=== PATIENT | female | born 1990 | race Caucasian/White ===

== ENCOUNTER 2016-06-29 22:00 | Emergency (ER) | payer OTHER ==
[2016-06-29 22:05] VITALS: RESP 18; TEMP 100.6
--- NOTE | 2016-06-29 22:12 | ED ---
Psych HPI - General Chief Complaint: Psychiatric Symptoms Stated Complaint: MENTAL HEALTH Time Seen by Provider: 06/29/16 22:06 Source: patient, RN notes reviewed Mode of arrival: ambulatory Limitations: no limitations - History of Present Illness Initial Comments: 25-year-old female presents emergency Department with police escort for psychiatric evaluation. Patient was picked up on court order burr picker. Patient made some threats other day no she states she cannot remember what they were. Patient's mother filed a petition with the Court and she was picked up by police. Patient denies any suicidal or homicidal thoughts. Patient has no complaints denies cough cold like symptoms. Denies ear pain. She states she had sore throat past but states that mother at this time. Denies any abdominal pain, nausea, vomiting diarrhea constipation. Patient offers no other complaints. Patient's does admit to occasional of all use and drug use which includes marijuana heroin - Related Data Home Medications Medication Instructions Recorded Confirmed No Known Home Medications [No 09/09/15 06/29/16 Known Home Medications] Allergies Allergy/AdvReac Type Severity Reaction Status Date / Time No Known Allergies Allergy Verified 06/29/16 22:05 Review of Systems ROS Statement: Those systems with pertinent positive or pertinent negative responses have been documented in the HPI. ROS Other: All systems not noted in ROS Statement are negative. Past Medical History Past Medical History: No Reported History Additional Past Medical History / Comment(s): kidney failure 2011 with dialysis , on life support at [facility] 07/13 after drug overdose, concusion in 2002 from fall while skateboarding History of Any Multi-Drug Resistant Organisms: None Reported Additional Past Surgical History / Comment(s): plastic surgery on lip Past Anesthesia/Blood Transfusion Reactions: No Reported Reaction Past Psychological History: Anxiety, Bipolar, Depression Smoking Status: Current every day smoker Past Alcohol Use History: Occasional Additional Past Alcohol Use History / Comment(s): monthly, drinks 5 beers in one sitting Past Drug Use History: Heroin, Marijuana, Prescription Drug Abuse Additional Drug Use History / Comment(s): 4-15 - Past Family History Mother Additional Family Medical History / Comment(s): depression Father Family Medical History: Hypertension General Exam Limitations: no limitations General appearance: alert, in no apparent distress Head exam: Present: atraumatic, normocephalic, normal inspection Eye exam: Present: normal appearance, PERRL, EOMI. Absent: scleral icterus, conjunctival injection, periorbital swelling ENT exam: Present: normal exam, normal oropharynx, mucous membranes moist, TM's normal bilaterally, normal external ear exam Neck exam: Present: normal inspection, full ROM. Absent: tenderness, meningismus, lymphadenopathy Respiratory exam: Present: normal lung sounds bilaterally. Absent: respiratory distress, wheezes, rales, rhonchi, stridor Cardiovascular Exam: Present: regular rate, normal rhythm, normal heart sounds. Absent: systolic murmur, diastolic murmur, rubs, gallop, clicks GI/Abdominal exam: Present: soft, normal bowel sounds. Absent: distended, tenderness, guarding, rebound, rigid Neurological exam: Present: alert, oriented X3, CN II-XII intact Psychiatric exam: Present: normal affect, normal mood Skin exam: Present: warm, dry, intact, normal color. Absent: rash Course Vital Signs 06/29/16 22:02 Temperature 100.6 F H Pulse Rate 110 H Respiratory 18 Rate Blood Pressure 143/96 O2 Sat by Pulse 100 Oximetry Medical Decision Making - Medical Decision Making 26-year-old female presented for psychiatric evaluation. Patient has no suicidal or homicidal thoughts. Patient is here with mother now mother agrees to take the patient home and to monitor patient. Patient was evaluated by EPS and case discussed with Dr. Park Zamora psychiatrist who does not recommend inpatient treatment. Patient contracts for safety. Return parameters were discussed. - Lab Data Lab Results 06/29/16 06/29/16 Range/Units 22:14 22:35 Urine Opiates Screen Detected H (NotDetected) Ur Oxycodone Screen Not Detected (NotDetected) Urine Methadone Screen Not Detected (NotDetected) Ur Propoxyphene Screen Not Detected (NotDetected) Ur Barbiturates Screen Not Detected (NotDetected) U Tricyclic Antidepress Not Detected (NotDetected) Ur Phencyclidine Scrn Not Detected (NotDetected) Ur Amphetamines Screen Not Detected (NotDetected) U Methamphetamines Scrn Not Detected (NotDetected) U Benzodiazepines Scrn Not Detected (NotDetected) Urine Cocaine Screen Not Detected (NotDetected) U Marijuana (THC) Screen Detected H (NotDetected) Influenza Type A RNA Not Detected (Not Detectd) Influenza Type B (PCR) Not Detected (Not Detectd) Disposition Clinical Impression: Depression Disposition: HOME SELF-CARE Condition: Stable Instructions: Depression (ED) Additional Instructions: Please return to the Emergency Department if symptoms worsen or any other concerns. Time of Disposition: 01:42
[2016-06-30 01:49] VITALS: BP 144/87; PULSE 95
== END 2016-06-30 01:49 | disposition home or self-care (01) ==
LOC: EC 22:00
DX: F31.9 Bipolar disorder, unspecified (principal); J02.9 Acute pharyngitis, unspecified; F17.200 Nicotine dependence, unspecified, uncomplicated; Z81.8 Family history of other mental and behavioral disorders
CPT/HCPCS: 80306; 82075; 87502; 99284

== ENCOUNTER 2016-07-01 04:27 | Emergency (ER) | payer OTHER ==
--- NOTE | 2016-07-01 04:31 | ED ---
General Adult HPI - General Stated complaint: overdose Time Seen by Provider: 07/01/16 04:27 Source: RN notes reviewed - History of Present Illness Initial comments: This is a 26-year-old female who presents emergency department after having used heroin she was found unresponsive EMS arrived they gave her Narcan and she came back to being alert and oriented 3. Patient currently has no complaints. Patient denies any nausea patient denies any headache. Patient denies any difficulty breathing or shortness of breath. Patient denies any chest pain. Patient denies any recent fever chills or cough. Patient denies abdominal pain patient denies any injuries. Patient was able to tell us where she was and tell me the year and month and day. - Related Data Home Medications Medication Instructions Recorded Confirmed No Known Home Medications [No 09/09/15 06/29/16 Known Home Medications] Allergies Allergy/AdvReac Type Severity Reaction Status Date / Time No Known Allergies Allergy Verified 06/29/16 22:05 Review of Systems ROS Statement: Those systems with pertinent positive or pertinent negative responses have been documented in the HPI. ROS Other: All systems not noted in ROS Statement are negative. Past Medical History Past Medical History: No Reported History Additional Past Medical History / Comment(s): kidney failure 2011 with dialysis , on life support at [facility] 07/13 after drug overdose, concusion in 2002 from fall while skateboarding History of Any Multi-Drug Resistant Organisms: None Reported Additional Past Surgical History / Comment(s): plastic surgery on lip Past Anesthesia/Blood Transfusion Reactions: No Reported Reaction Past Psychological History: Anxiety, Bipolar, Depression Smoking Status: Current every day smoker Past Alcohol Use History: Occasional Additional Past Alcohol Use History / Comment(s): monthly, drinks 5 beers in one sitting Past Drug Use History: Heroin, Marijuana, Prescription Drug Abuse Additional Drug Use History / Comment(s): 4--15 - Past Family History Mother Additional Family Medical History / Comment(s): depression Father Family Medical History: Hypertension General Exam - General Exam Comments Initial Comments: GENERAL: Patient is well-developed and well-nourished. Patient is nontoxic and well- hydrated and is in no acute distress. ENT: Neck is soft and supple. No significant lymphadenopathy is noted. Oropharynx is clear. Moist mucous membranes. Neck has full range of motion without eliciting any pain. EYES: The sclera were anicteric and conjunctiva were pink and moist. Extraocular movements were intact and pupils were equal round and reactive to light. Eyelids were unremarkable. PULMONARY: Unlabored respirations. Good breath sounds bilaterally. No audible rales rhonchi or wheezing was noted. CARDIOVASCULAR: There is a regular rate and rhythm without any murmurs gallops or rubs. ABDOMEN: Soft and nontender with normal bowel sounds. SKIN: Skin is clear with no lesions or rashes and otherwise unremarkable. NEUROLOGIC: Patient is alert and oriented x3. Cranial nerves II through XII are grossly intact. Motor and sensory are also intact. Normal speech, volume and content. Symmetrical smile. MUSCULOSKELETAL: Normal extremities with adequate strength and full range of motion. LYMPHATICS: No significant lymphadenopathy is noted PSYCHIATRIC: Normal psychiatric evaluation. Course Vital Signs 07/01/16 04:29 Temperature 99.7 F H Pulse Rate 121 H Respiratory 18 Rate Blood Pressure 118/62 O2 Sat by Pulse 96 Oximetry Medical Decision Making - Medical Decision Making Patient remains alert and oriented 3 and without complaint Disposition Clinical Impression: Heroin overdose Disposition: HOME SELF-CARE Instructions: Narcotic Abuse (ED) Additional Instructions: Stop using heroin Referrals: None,Stated [Primary Care Provider] - 1-2 days Time of Disposition: 05:03
[2016-07-01 04:36] VITALS: BP 118/62; PULSE 121; RESP 18; TEMP 99.7
== END 2016-07-01 05:15 | disposition home or self-care (01) ==
LOC: EC 04:27
DX: T40.1X1A Poisoning by heroin, accidental (unintentional), initial encounter (principal); F17.200 Nicotine dependence, unspecified, uncomplicated
CPT/HCPCS: 99284

== ENCOUNTER → 2018-06-05 | Outpatient (CLI) | payer OTHER ==
[2018-06-06 16:04] LABS: Hepatits C Virus RNA Not detected (Not detected); Hepatits C Virus RNA, Quant <12 IU/mL (<12); LOG HCV IU/mL <1.08 (<1.08)
== END ==
LOC: LABWHC1 10:04
PROVIDERS: ATTEND Family Medicine Addiction Medicine
DX: B19.20 Unspecified viral hepatitis C without hepatic coma (principal)
CPT/HCPCS: 36415; 87522

== ENCOUNTER → 2018-06-30 | Outpatient (CLI) | payer OTHER | LOC: LABWHC1 15:07 | PROVIDERS: ATTEND Family Medicine Addiction Medicine | DX: B19.20 Unspecified viral hepatitis C without hepatic coma (principal) | CPT/HCPCS: 36415; 87522 ==

== ENCOUNTER 2018-08-21 16:35 | Emergency (ER) | payer OTHER ==
--- NOTE | 2018-08-21 16:50 | ED ---
General Adult HPI - General Stated complaint: Overdose Time Seen by Provider: 08/21/18 16:35 Source: RN notes reviewed - History of Present Illness Initial comments: I went into the room to evaluate the patient she was arguing with staff about getting in a gown I asked if she wanted to be seen she states she did not want to be seen she wanted to leave immediately. The patient was at that point time discharge. - Related Data Home Medications Medication Instructions Recorded Confirmed No Known Home Medications 09/09/15 06/29/16 Allergies Allergy/AdvReac Type Severity Reaction Status Date / Time No Known Allergies Allergy Verified 06/29/16 22:05 Review of Systems ROS Statement: Those systems with pertinent positive or pertinent negative responses have been documented in the HPI. ROS Other: All systems not noted in ROS Statement are negative. Past Medical History Past Medical History: No Reported History Additional Past Medical History / Comment(s): kidney failure 2011 with dialysis, on life support at [facility] 07/13 after drug overdose, concusion in 2002 from fall while skateboarding History of Any Multi-Drug Resistant Organisms: None Reported Additional Past Surgical History / Comment(s): plastic surgery on lip Past Anesthesia/Blood Transfusion Reactions: No Reported Reaction Past Psychological History: Anxiety, Bipolar, Depression Smoking Status: Current every day smoker Past Alcohol Use History: Occasional Additional Past Alcohol Use History / Comment(s): monthly, drinks 5 beers in one sitting Past Drug Use History: Heroin, Marijuana, Prescription Drug Abuse Additional Drug Use History / Comment(s): 4-6-15 - Past Family History Mother Additional Family Medical History / Comment(s): depression Father Family Medical History: Hypertension General Exam - General Exam Comments Initial Comments: Patient did not want to do any physical examination but she was alert and oriented moving all 4 extremities and got up and walked out of the ER. Patient's mother was here to take her. Disposition Disposition: Left Against Medical Advice Referrals: None,Stated [Primary Care Provider] - 1-2 days Time of Disposition: 16:50
== END 2018-08-21 17:11 | disposition left against medical advice (07) ==
LOC: EC 16:35
DX: Z03.89 Encounter for observation for other suspected diseases and conditions ruled out (principal)
CPT/HCPCS: 99499

== ENCOUNTER 2018-08-22 20:17 | Inpatient (IN) | payer MEDICAID, OTHER ==
[2018-08-22] MEDS ORDERED: SODIUM CHLORIDE 0.9% 1,000 ML IV STA (21:20)
--- NOTE | 2018-08-22 21:43 | ED ---
Overdose HPI - General Chief Complaint: Overdose Stated Complaint: Overdose Time Seen by Provider: 08/22/18 20:34 Source: EMS, RN notes reviewed, old records reviewed Mode of arrival: EMS Limitations: no limitations - History of Present Illness Initial Comments: This is a 28-year-old female the ER for overdose heroin overdose. Patient overdosed twice to heroin the last 2 days as a suicide attempt. Patient states she no longer wants to live. History of depression psychiatric illness. History of drug abuse. MD Complaint: intentional overdose -: days(s) Intent: suicide attempt, want to go to sleep, want to escape How Overdose Was Discovered: family/friend present at time (Mother found patient unresponsive) Context: Intentional Overdose: drug/ETOH problems Associated Symptoms: depression Treatments Prior to Arrival: narcan - Related Data Home Medications Medication Instructions Recorded Confirmed Buprenorphine HCl/Naloxone HCl 0.5 film SL BID 08/22/18 08/22/18 [Suboxone 8 mg-2 mg Sl Film] Temazepam [Restoril] 15 mg PO HS 08/22/18 08/22/18 Allergies Allergy/AdvReac Type Severity Reaction Status Date / Time No Known Allergies Allergy Verified 08/22/18 21:28 Review of Systems ROS Statement: Those systems with pertinent positive or pertinent negative responses have been documented in the HPI. ROS Other: All systems not noted in ROS Statement are negative. Past Medical History Past Medical History: No Reported History Additional Past Medical History / Comment(s): kidney failure 2011 with dialysis, on life support at [facility] 07/13 after drug overdose, concusion in 2002 from fall while skateboarding History of Any Multi-Drug Resistant Organisms: None Reported Additional Past Surgical History / Comment(s): plastic surgery on lip Past Anesthesia/Blood Transfusion Reactions: No Reported Reaction Past Psychological History: Anxiety, Bipolar, Depression Smoking Status: Current every day smoker Past Alcohol Use History: Occasional Past Drug Use History: Heroin, Marijuana, Prescription Drug Abuse - Past Family History Mother Additional Family Medical History / Comment(s): depression Father Family Medical History: Hypertension General Exam Limitations: no limitations General appearance: alert, in no apparent distress Head exam: Present: atraumatic, normocephalic, normal inspection Eye exam: Present: normal appearance, PERRL, EOMI. Absent: scleral icterus, conjunctival injection, periorbital swelling ENT exam: Present: normal exam, mucous membranes moist Neck exam: Present: normal inspection. Absent: tenderness, meningismus, lymphadenopathy Respiratory exam: Present: normal lung sounds bilaterally. Absent: respiratory distress, wheezes, rales, rhonchi, stridor Cardiovascular Exam: Present: regular rate, normal rhythm, normal heart sounds. Absent: systolic murmur, diastolic murmur, rubs, gallop, clicks GI/Abdominal exam: Present: soft, normal bowel sounds. Absent: distended, tenderness, guarding, rebound, rigid Extremities exam: Present: normal inspection, full ROM, normal capillary refill. Absent: tenderness, pedal edema, joint swelling, calf tenderness Back exam: Present: normal inspection Neurological exam: Present: alert, oriented X3, CN II-XII intact Psychiatric exam: Present: normal affect, normal mood, suicidal ideation Skin exam: Present: warm, dry, intact, normal color. Absent: rash Course Vital Signs 08/22/18 20:19 Temperature 98.1 F Pulse Rate 103 H Respiratory 20 Rate Blood Pressure 108/74 O2 Sat by Pulse 99 Oximetry - Reevaluation(s) Reevaluation #1: 08/22/18 23:03 Medical record reviewed and patient's medically clear for psychiatric evaluation Medical Decision Making - Medical Decision Making 28 female the ER for evaluation. Patient is to be in for psychiatric evaluation and treatment secondary to overdose - Lab Data Result diagrams: 08/22/18 21:39 08/22/18 21:39 Lab Results 08/22/18 08/22/18 08/22/18 Range/Units 21:39 21:39 21:39 WBC 13.1 H (3.8-10.6) k/uL RBC 4.98 (3.80-5.40) m/uL Hgb 14.1 (11.4-16.0) gm/dL Hct 44.2 (34.0-46.0) % MCV 88.7 (80.0-100.0) fL MCH 28.3 (25.0-35.0) pg MCHC 32.0 (31.0-37.0) g/dL RDW 13.3 (11.5-15.5) % Plt Count 181 (150-450) k/uL Neutrophils % 89 % Lymphocytes % 6 % Monocytes % 3 % Eosinophils % 1 % Basophils % 0 % Neutrophils # 11.7 H (1.3-7.7) k/uL Lymphocytes # 0.7 L (1.0-4.8) k/uL Monocytes # 0.4 (0-1.0) k/uL Eosinophils # 0.1 (0-0.7) k/uL Basophils # 0.0 (0-0.2) k/uL Sodium 140 (137-145) mmol/L Potassium 4.1 (3.5-5.1) mmol/L Chloride 104 (98-107) mmol/L Carbon Dioxide 28 (22-30) mmol/L Anion Gap 8 mmol/L BUN 11 (7-17) mg/dL Creatinine 0.66 (0.52-1.04) mg/dL Est GFR (CKD-EPI)AfAm >90 (>60 ml/min/1.73 sqM) Est GFR (CKD-EPI)NonAf >90 (>60 ml/min/1.73 sqM) Glucose 76 (74-99) mg/dL Calcium 9.5 (8.4-10.2) mg/dL Total Bilirubin 0.6 (0.2-1.3) mg/dL AST 65 H (14-36) U/L ALT 216 H (9-52) U/L Alkaline Phosphatase 96 (38-126) U/L Creatine Kinase 83 (30-135) U/L Troponin I <0.012 (0.000-0.034) ng/mL Total Protein 7.6 (6.3-8.2) g/dL Albumin 4.5 (3.5-5.0) g/dL Urine HCG, Qual (Not Detectd) Salicylates <1.0 mg/dL Urine Opiates Screen (NotDetected) Ur Oxycodone Screen (NotDetected) Urine Methadone Screen (NotDetected) Ur Propoxyphene Screen (NotDetected) Acetaminophen <10.0 ug/mL Ur Barbiturates Screen (NotDetected) U Tricyclic Antidepress (NotDetected) Ur Phencyclidine Scrn (NotDetected) Ur Amphetamines Screen (NotDetected) U Methamphetamines Scrn (NotDetected) U Benzodiazepines Scrn (NotDetected) Urine Cocaine Screen (NotDetected) U Marijuana (THC) Screen (NotDetected) Serum Alcohol <10 mg/dL 08/22/18 08/22/18 Range/Units 22:26 22:26 WBC (3.8-10.6) k/uL RBC (3.80-5.40) m/uL Hgb (11.4-16.0) gm/dL Hct (34.0-46.0) % MCV (80.0-100.0) fL MCH (25.0-35.0) pg MCHC (31.0-37.0) g/dL RDW (11.5-15.5) % Plt Count (150-450) k/uL Neutrophils % % Lymphocytes % % Monocytes % % Eosinophils % % Basophils % % Neutrophils # (1.3-7.7) k/uL Lymphocytes # (1.0-4.8) k/uL Monocytes # (0-1.0) k/uL Eosinophils # (0-0.7) k/uL Basophils # (0-0.2) k/uL Sodium (137-145) mmol/L Potassium (3.5-5.1) mmol/L Chloride (98-107) mmol/L Carbon Dioxide (22-30) mmol/L Anion Gap mmol/L BUN (7-17) mg/dL Creatinine (0.52-1.04) mg/dL Est GFR (CKD-EPI)AfAm (>60 ml/min/1.73 sqM) Est GFR (CKD-EPI)NonAf (>60 ml/min/1.73 sqM) Glucose (74-99) mg/dL Calcium (8.4-10.2) mg/dL Total Bilirubin (0.2-1.3) mg/dL AST (14-36) U/L ALT (9-52) U/L Alkaline Phosphatase (38-126) U/L Creatine Kinase (30-135) U/L Troponin I (0.000-0.034) ng/mL Total Protein (6.3-8.2) g/dL Albumin (3.5-5.0) g/dL Urine HCG, Qual Not Detected (Not Detectd) Salicylates mg/dL Urine Opiates Screen Detected H (NotDetected) Ur Oxycodone Screen Not Detected (NotDetected) Urine Methadone Screen Not Detected (NotDetected) Ur Propoxyphene Screen Not Detected (NotDetected) Acetaminophen ug/mL Ur Barbiturates Screen Not Detected (NotDetected) U Tricyclic Antidepress Not Detected (NotDetected) Ur Phencyclidine Scrn Not Detected (NotDetected) Ur Amphetamines Screen Not Detected (NotDetected) U Methamphetamines Scrn Not Detected (NotDetected) U Benzodiazepines Scrn Detected H (NotDetected) Urine Cocaine Screen Not Detected (NotDetected) U Marijuana (THC) Screen Not Detected (NotDetected) Serum Alcohol mg/dL - EKG Data -: EKG Interpreted by Me (EKG shows sinus rhythm rate of 88, MD 140, QRS 92, QTc 433) Disposition Clinical Impression: Drug overdose, Heroin overdose Disposition: TRANSFER TO PSYCH HOSP/UNIT Condition: Fair Is patient prescribed a controlled substance at d/c from ED?: No Referrals: Felton Perez DO [Primary Care Provider] - 1-2 days
[2018-08-22 22:03] LABS: Basophils % (A) 0 %; Eosinophils # (A) 0.1 k/uL (0-0.7); Eosinophils % (A) 1 %; HCT 44.2 % (34.0-46.0); HGB 14.1 gm/dL (11.4-16.0); Lymphocytes # (A) 0.7 k/uL (1.0-4.8); Lymphocytes % (A) 6 %; MCH 28.3 pg (25.0-35.0); MCV 88.7 fL (80.0-100.0); Mean Platelet Volume 7.8; Monocytes # (A) 0.4 k/uL (0-1.0); Monocytes % (A) 3 %; Neutrophils # (A) 11.7 k/uL (1.3-7.7); Neutrophils % (A) 89 %; Platelet Count 181 k/uL (150-450); RBC 4.98 m/uL (3.80-5.40); RDW 13.3 % (11.5-15.5); WBC 13.1 k/uL (3.8-10.6)
[2018-08-22 22:13] LABS: ALT 216 U/L (9-52); AST 65 U/L (14-36); Acetaminophen <10.0 ug/mL; Albumin 4.5 g/dL (3.5-5.0); Alcohol <10 mg/dL; Alkaline Phosphatase 96 U/L (38-126); Anion Gap 8 mmol/L; Blood Urea Nitrogen 11 mg/dL (7-17); Calcium 9.5 mg/dL (8.4-10.2); Carbon Dioxide 28 mmol/L (22-30); Chloride 104 mmol/L (98-107); Creatine Kinase 83 U/L (30-135); Glucose 76 mg/dL (74-99); Potassium 4.1 mmol/L (3.5-5.1); Salicylate <1.0 mg/dL; Sodium 140 mmol/L (137-145); Total Bilirubin 0.6 mg/dL (0.2-1.3); Total Protein 7.6 g/dL (6.3-8.2)
[2018-08-22 23:02] LABS: Amphetamine Screen,Urine Not Detected (NotDetected); Barbiturate Screen,Urine Not Detected (NotDetected); Benzodiazepines Screen,Urine Detected (NotDetected); Cocaine Screen,Urine Not Detected (NotDetected); Methadone Screen, Urine Not Detected (NotDetected); Opiate Screen,Urine Detected (NotDetected); Oxycodone Screen, Urine Not Detected (NotDetected); Phencyclidine Screen,Urine Not Detected (NotDetected); Tricyclic Antidepressant,Urine Not Detected (NotDetected); Urn Cannabinoid Scrn Not Detected (NotDetected)
[2018-08-23] MEDS ORDERED: LORazepam 1 MG TAB PO STA (01:04)
[2018-08-23] MEDS ORDERED: ZIPRASIDONE 20 MG VIAL IM PRN (03:53)
[2018-08-23] MEDS ORDERED: MAGNESIUM HYDROXIDE 2,400 MG/10 ML CUP PO PRN (03:53)
[2018-08-23] MEDS ORDERED: MAG HYDROX/AL HYDROX/SIMETH 30 ML CUP PO PRN (03:53)
[2018-08-23] MEDS: NICOTINE 14MG/24HR PATCH TRANSDERM SCH (08:29)
[2018-08-23 12:26] LABS: Appearance,Urine Clear (Clear); Bilirubin,Urine Negative (Negative); Blood,Urine Negative (Negative); Color,Urine Colorless; Glucose,Urine (UA) Negative (Negative); Ketones,Urine Negative (Negative); Leukocyte Esterase,Urine Negative (Negative); Nitrite,Urine Negative (Negative); Protein,Urine Negative (Negative); Specific Gravity,Urine 1.004 (1.001-1.035); Urobilinogen,Urine <2.0 mg/dL (<2.0)
--- NOTE | 2018-08-23 13:02 | P.HP ---
Psychiatric H&P - . H&P Date: 08/23/18 History & Physical: Allergies Allergy/AdvReac Type Severity Reaction Status Date / Time No Known Allergies Allergy Verified 08/23/18 03:51 Vital Signs Temp 98.6 F 08/23/18 04:43 Pulse 69 08/23/18 04:43 Resp 14 08/23/18 04:43 BP 109/63 08/23/18 04:43 Pulse Ox 99 08/23/18 04:43 Intake & Output 08/22/18 08/23/18 08/23/18 18:59 06:59 18:59 Weight 72.575 kg Laboratory Last Values WBC 13.1 k/uL (3.8-10.6) H 08/22/18 21:39 RBC 4.98 m/uL (3.80-5.40) 08/22/18 21:39 Hgb 14.1 gm/dL (11.4-16.0) 08/22/18 21:39 Hct 44.2 % (34.0-46.0) 08/22/18 21:39 MCV 88.7 fL (80.0-100.0) 08/22/18 21:39 MCH 28.3 pg (25.0-35.0) 08/22/18 21:39 MCHC 32.0 g/dL (31.0-37.0) 08/22/18 21:39 RDW 13.3 % (11.5-15.5) 08/22/18 21:39 Plt Count 181 k/uL (150-450) 08/22/18 21:39 Neutrophils % 89 % 08/22/18 21:39 Lymphocytes % 6 % 08/22/18 21:39 Monocytes % 3 % 08/22/18 21:39 Eosinophils % 1 % 08/22/18 21:39 Basophils % 0 % 08/22/18 21:39 Neutrophils # 11.7 k/uL (1.3-7.7) H 08/22/18 21:39 Lymphocytes # 0.7 k/uL (1.0-4.8) L 08/22/18 21:39 Monocytes # 0.4 k/uL (0-1.0) 08/22/18 21:39 Eosinophils # 0.1 k/uL (0-0.7) 08/22/18 21:39 Basophils # 0.0 k/uL (0-0.2) 08/22/18 21:39 Sodium 140 mmol/L (137-145) 08/22/18 21:39 Potassium 4.1 mmol/L (3.5-5.1) 08/22/18 21:39 Chloride 104 mmol/L (98-107) 08/22/18 21:39 Carbon Dioxide 28 mmol/L (22-30) 08/22/18 21:39 Anion Gap 8 mmol/L 08/22/18 21:39 BUN 11 mg/dL (7-17) 08/22/18 21:39 Creatinine 0.66 mg/dL (0.52-1.04) 08/22/18 21:39 Est GFR (CKD-EPI)AfAm >90 (>60 ml/min/1.73 sqM) 08/22/18 21:39 Est GFR (CKD-EPI)NonAf >90 (>60 ml/min/1.73 sqM) 08/22/18 21:39 Glucose 76 mg/dL (74-99) 08/22/18 21:39 Calcium 9.5 mg/dL (8.4-10.2) 08/22/18 21:39 Total Bilirubin 0.6 mg/dL (0.2-1.3) 08/22/18 21:39 AST 65 U/L (14-36) H 08/22/18 21:39 ALT 216 U/L (9-52) H 08/22/18 21:39 Alkaline Phosphatase 96 U/L (38-126) 08/22/18 21:39 Creatine Kinase 83 U/L (30-135) 08/22/18 21:39 Troponin I <0.012 ng/mL (0.000-0.034) 08/22/18 21:39 Total Protein 7.6 g/dL (6.3-8.2) 08/22/18 21:39 Albumin 4.5 g/dL (3.5-5.0) 08/22/18 21:39 Urine Color Colorless 08/22/18 22:26 Urine Appearance Clear (Clear) 08/22/18 22:26 Urine pH 6.0 (5.0-8.0) 08/22/18 22:26 Ur Specific [place] 1.004 (1.001-1.035) 08/22/18 22:26 Urine Protein Negative (Negative) 08/22/18 22: Urine Glucose (UA) Negative (Negative) 08/22/18 22: Urine Ketones Negative (Negative) 08/22/18 22: Urine Blood Negative (Negative) 08/22/18 22: Urine Nitrite Negative (Negative) 08/22/18 22: Urine Bilirubin Negative (Negative) 08/22/18 22: Urine Urobilinogen <2.0 mg/dL (<2.0) 08/22/18 22: Ur Leukocyte Esterase Negative (Negative) 08/22/18 22: Urine HCG, Qual Not Detected (Not Detectd) 08/22/18: Salicylates <1.0 mg/dL 08/22/18 21:39 Urine Opiates Screen Detected (NotDetected) H 08/22/18 22:26 Ur Oxycodone Screen Not Detected (NotDetected) 08/22/18 22:26 Urine Methadone Screen Not Detected (NotDetected) 08/22/18 22:26 Ur Propoxyphene Screen Not Detected (NotDetected) 08/22/18 22:26 Acetaminophen <10.0 ug/mL 08/22/18 21:39 Ur Barbiturates Screen Not Detected (NotDetected) 08/22/18 22:26 U Tricyclic Antidepress Not Detected (NotDetected) 08/22/18 22:26 Ur Phencyclidine Scrn Not Detected (NotDetected) 08/22/18 22:26 Ur Amphetamines Screen Not Detected (NotDetected) 08/22/18 22:26 U Methamphetamines Scrn Not Detected (NotDetected) 08/22/18 22:26 U Benzodiazepines Scrn Detected (NotDetected) H 08/22/18 22:26 Urine Cocaine Screen Not Detected (NotDetected) 08/22/18 22:26 U Marijuana (THC) Screen Not Detected (NotDetected) 08/22/18 22:26 Serum Alcohol <10 mg/dL 08/22/18 21:39 IDENTIFYING DATA: 28-year-old single female patient HPI: Patient admitted to the inpatient psychiatric unit [facility] with concerns of thoughts of suicide. Patient states that she was saying that she wanted to yesterday to her mom. She says there is no specific triggers but just life in general. She admits to depression lately every day without specific plan of suicide. She states that she is also been using heroin IV and she used too much but it was not a suicide attempt. She states that her mom found her unresponsive and ambulance brought her to the hospital. She says it was not an intentional overdose. She feels fine physically today. She says she had an episode of feeling down today but now she feels better. Patient states that she feels she has ADHD but she's never been diagnosed with that. Says she's always had trouble with focus and attention. Says she tends to daydream and loses things. She also talks about short-term memory loss from a lack of oxygen her brain after an overdose. She admits to being a worrier with bad anxiety. She also says she has hyperactivity with her ADHD says jumping from one thing to the next. She also has trouble sitting still and racing thoughts. She initially seems to endorse having a history of manic episodes but then seems to relay that it has been more her ADHD. She has never been hospitalized for any manic-type symptoms. PAST PSYCHIATRIC HISTORY: She most recently has been on Restoril 15 mg at bedtime for about a month which has been helpful for her. She has never taken trazodone. She has had multiple psychiatric admissions to different places including here [facility]. She has taken an overdose of Tylenol at one point in time. She has never been on Effexor. She has been on Ativan, Xanax, Seroquel and Wellbutrin. She also makes reference to borderline personality disorder. She missed a history of recurrent episodes of depression. She initially endorses a history of manic-type episodes but then relays that she feels it's more her ADHD symptoms. She currently does see his [facility] counselor but no current psychiatrist. PMH: Denies ALLERGIES: No known ALLERGIES MEDICATIONS: Tylenol when necessary, Maalox when necessary, Ativan when necessary, milk of magnesia when necessary, Habitrol patch, Geodon when necessary CHEMICAL DEPENDENCY HISTORY: Patient reports that she has been using heroin lately almost every day. She denies any alcohol cocaine or marijuana use. She does also been using Xanax up the street. She has recently been on Suboxone. She was supposed to go to rehab on Saturday at [place]. She has been to [place] for rehab. FAMILY PSYCHIATRIC HISTORY: A lot of suicides in the family FAMILY CHEMICAL DEPENDENCY HISTORY: None known at this time SOCIAL HISTORY: Currently lives with her mom. She's never been and does not have any children. Regarding school she got her GED. MENTAL STATUS EXAM: She is alert and cooperative with the interview. Her speech is fluent, not rapid or pressured. Her mood is currently described as "excellent." She denies any current suicidal ideations. She denies any thoughts of harm to others. She denies any hallucinations. She does not make any terence delusional statements. Cognitively she appears very grossly intact. I do not note any significant disorientation. Insight is adequate, judgment shows evidence of recent impairment. STRENGTHS/WEAKNESSES: Strengths-some support; weaknesses-coping skills, substance use INTELLECTUAL FUNCTIONING: Average IMPRESSIONS: Major depressive disorder, recurrent; generalized anxiety disorder; rule out ADHD combined type; opioid use disorder; sedative hypnotic use disorder PLAN: Patient will be admitted to the inpatient psychiatric unit [facility] a voluntary basis. She'll be placed on SP 15 minute precautions. She'll participate in group and to be therapies. Baseline laboratory workup will be done the patient and medical consultation will be ordered. We'll initiate her on Effexor XR 75 mg daily to help with depression and anxiety as well as any ADHD symptoms some. We will replace the Restoril with trazodone as needed to see if this can help with sleep. We will order clonidine as needed to help with any physical opioid withdrawal symptoms. We will look into any support systems. She is scheduled to go to [facility] for rehab on Saturday. Estimated length of stay is 3-5 days. Prognosis is guarded. 08/23/18 12:54
[2018-08-23] MEDS: VENLAFAXINE HCL ER 75 MG CAP PO SCH (13:44)
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
[2018-08-23] MEDS: traZODone HCL 50 MG TAB PO PRN (20:41)
[2018-08-24] MEDS: ACETAMINOPHEN TAB 325 MG TAB PO PRN (04:50)
[2018-08-24] MEDS: VENLAFAXINE HCL ER 75 MG CAP PO SCH (08:14)
[2018-08-24] MEDS: NICOTINE 14MG/24HR PATCH TRANSDERM SCH (08:15)
--- NOTE | 2018-08-24 08:41 | P.PN ---
Progress Note - Text Progress Note Date: 08/24/18 Interval history: Patient is seen in cross coverage today. She says she fell asleep with the trazodone last night but then woke up and was tossing and turning. She does seem to be eating. She does describe some opioid withdrawal symptoms, we did discuss her being on Zofran and clonidine as needed. She did take the Effexor XR this morning does not complain of any significant side effects with it. Mental status exam: She is alert and cooperative with the interview. Her speech is fluent, not rapid or pressured. Thought processes are organized. Her mood she describes is good. She denies any thoughts of harm to self or others. No evidence of any psychosis. Plan: Patient will be maintained on Effexor XR as initiated and trazodone when necessary for insomnia. Continue to monitor for any medication side effects monitor her ongoing response to treatment.
[2018-08-24] MEDS: cloNIDine HCL 0.1 MG TAB PO PRN (08:49)
[2018-08-24] MEDS: ONDANSETRON 4 MG TAB PO PRN ×3 (08:49→20:53)
[2018-08-24] MEDS: LOPERAMIDE 2 MG CAP PO PRN (12:59)
[2018-08-24] MEDS: IBUPROFEN 600 MG TAB PO PRN ×2 (13:01→20:54)
[2018-08-24] MEDS: traZODone HCL 50 MG TAB PO PRN (20:53)
[2018-08-25] MEDS: ACETAMINOPHEN TAB 325 MG TAB PO PRN (00:59)
[2018-08-25] MEDS: cloNIDine HCL 0.1 MG TAB PO PRN ×2 (01:00→08:19)
[2018-08-25 05:36] VITALS: BMI 28.3
[2018-08-25 08:48] LABS: HGB 13.8 gm/dL (11.4-16.0); MCH 27.8 pg (25.0-35.0); MCHC 31.4 g/dL (31.0-37.0); MCV 88.5 fL (80.0-100.0); Mean Platelet Volume 7.2; Platelet Count 236 k/uL (150-450); RBC 4.97 m/uL (3.80-5.40); RDW 12.8 % (11.5-15.5); WBC 6.2 k/uL (3.8-10.6)
[2018-08-25] MEDS: NICOTINE 14MG/24HR PATCH TRANSDERM SCH (08:48)
[2018-08-25] MEDS: VENLAFAXINE HCL ER 75 MG CAP PO SCH (09:01)
--- NOTE | 2018-08-25 13:50 | P.PN ---
Subjective Progress Note Date: 08/25/18 Principal diagnosis: Major depressive disorder, recurrent; generalized anxiety disorder; rule out ADHD combined type; opioid use disorder; sedative hypnotic use disorder 08/25/2018: Objective - Vital Signs Vital signs: Vital Signs Temp 98.0 F 08/25/18 01:18 Pulse 78 08/25/18 08:22 Resp 16 08/25/18 01:18 BP 110/70 08/25/18 08:22 Pulse Ox 99 08/23/18 04:43 Intake & Output 08/24/18 08/25/18 08/25/18 18:59 06:59 18:59 Weight 72 kg - Labs CBC & Chem 7: 08/25/18 08:13 08/22/18 21:39 Assessment and Plan Assessment: Allergies Allergy/AdvReac Type Severity Reaction Status Date / Time No Known Allergies Allergy Verified 08/23/18 03:51 Vital Signs Temp 98.6 F 08/23/18 04:43 Pulse 69 08/23/18 04:43 Resp 14 08/23/18 04:43 BP 109/63 08/23/18 04:43 Pulse Ox 99 08/23/18 04:43 Intake & Output 08/22/18 08/23/18 08/23/18 18:59 06:59 18:59 Weight 72.575 kg Laboratory Last Values WBC 13.1 k/uL (3.8-10.6) H 08/22/18 21:39 RBC 4.98 m/uL (3.80-5.40) 08/22/18 21:39 Hgb 14.1 gm/dL (11.4-16.0) 08/22/18 21:39 Hct 44.2 % (34.0-46.0) 08/22/18 21:39 MCV 88.7 fL (80.0-100.0) 08/22/18 21:39 MCH 28.3 pg (25.0-35.0) 08/22/18 21:39 MCHC 32.0 g/dL (31.0-37.0) 08/22/18 21:39 RDW 13.3 % (11.5-15.5) 08/22/18 21:39 Plt Count 181 k/uL (150-450) 08/22/18 21:39 Neutrophils % 89 % 08/22/18 21:39 Lymphocytes % 6 % 08/22/18 21:39 Monocytes % 3 % 08/22/18 21:39 Eosinophils % 1 % 08/22/18 21:39 Basophils % 0 % 08/22/18 21:39 Neutrophils # 11.7 k/uL (1.3-7.7) H 08/22/18 21:39 Lymphocytes # 0.7 k/uL (1.0-4.8) L 08/22/18 21:39 Monocytes # 0.4 k/uL (0-1.0) 08/22/18 21:39 Eosinophils # 0.1 k/uL (0-0.7) 08/22/18 21:39 Basophils # 0.0 k/uL (0-0.2) 08/22/18 21:39 Sodium 140 mmol/L (137-145) 08/22/18 21:39 Potassium 4.1 mmol/L (3.5-5.1) 08/22/18 21:39 Chloride 104 mmol/L (98-107) 08/22/18 21:39 Carbon Dioxide 28 mmol/L (22-30) 08/22/18 21:39 Anion Gap 8 mmol/L 08/22/18 21:39 BUN 11 mg/dL (7-17) 08/22/18 21:39 Creatinine 0.66 mg/dL (0.52-1.04) 08/22/18 21:39 Est GFR (CKD-EPI)AfAm >90 (>60 ml/min/1.73 sqM) 08/22/18 21:39 Est GFR (CKD-EPI)NonAf >90 (>60 ml/min/1.73 sqM) 08/22/18 21:39 Glucose 76 mg/dL (74-99) 08/22/18 21:39 Calcium 9.5 mg/dL (8.4-10.2) 08/22/18 21:39 Total Bilirubin 0.6 mg/dL (0.2-1.3) 08/22/18 21:39 AST 65 U/L (14-36) H 08/22/18 21:39 ALT 216 U/L (9-52) H 08/22/18 21:39 Alkaline Phosphatase 96 U/L (38-126) 08/22/18 21:39 Creatine Kinase 83 U/L (30-135) 08/22/18 21:39 Troponin I <0.012 ng/mL (0.000-0.034) 08/22/18 21: Total Protein 7.6 g/dL (6.3-8.2) 08/22/18 21: Albumin 4.5 g/dL (3.5-5.0) 08/22/18 21:39 Urine Color Colorless 08/22/18 22: Urine Appearance Clear (Clear) 08/22/18 22: Urine pH 6.0 (5.0-8.0) 08/22/18 22: Ur Specific [place] 1.004 (1.001-1.035) 08/22/18 22: Urine Protein Negative (Negative) 08/22/18: Urine Glucose (UA) Negative (Negative) 08/22/18 22: Urine Ketones Negative (Negative) 08/22/18 22: Urine Blood Negative (Negative) 08/22/18 22: Urine Nitrite Negative (Negative) 08/22/18: Urine Bilirubin Negative (Negative) 08/22/18 22: Urine Urobilinogen <2.0 mg/dL (<2.0) 08/22/18 22: Ur Leukocyte Esterase Negative (Negative) 08/22/18 22: Urine HCG, Qual Not Detected (Not Detectd) 08/22/18 22: Salicylates <1.0 mg/dL 08/22/18 21:39 Urine Opiates Screen Detected (NotDetected) H 08/22/18 22:26 Ur Oxycodone Screen Not Detected (NotDetected) 08/22/18 22:26 Urine Methadone Screen Not Detected (NotDetected) 08/22/18 22:26 Ur Propoxyphene Screen Not Detected (NotDetected) 08/22/18 22: Acetaminophen <10.0 ug/mL 08/22/18 21:39 Ur Barbiturates Screen Not Detected (NotDetected) 08/22/18 22: U Tricyclic Antidepress Not Detected (NotDetected) 08/22/18 22:26 Ur Phencyclidine Scrn Not Detected (NotDetected) 08/22/18 22: Ur Amphetamines Screen Not Detected (NotDetected) 08/22/18 22:26 U Methamphetamines Scrn Not Detected (NotDetected) 08/22/18 22:26 U Benzodiazepines Scrn Detected (NotDetected) H 08/22/18 22:26 Urine Cocaine Screen Not Detected (NotDetected) 08/22/18 22:26 U Marijuana (THC) Screen Not Detected (NotDetected) 08/22/18 22:26 Serum Alcohol <10 mg/dL 08/22/18 21:39 IDENTIFYING DATA: 28-year-old single female patient HPI: Patient admitted to the inpatient psychiatric unit [facility] with concerns of thoughts of suicide. Patient states that she was saying that she wanted to yesterday to her mom. She says there is no specific triggers but just life in general. She admits to depression lately every day without specific plan of suicide. She states that she is also been using heroin IV and she used too much but it was not a suicide attempt. She states that her mom found her unresponsive and ambulance brought her to the [facility] She says it was not an intentional overdose. She feels fine physically today. She says she had an episode of feeling down today but now she feels better. Patient states that she feels she has ADHD but she's never been diagnosed with that. Says she's always had trouble with focus and attention. Says she tends to daydream and loses things. She also talks about short-term memory loss from a lack of oxygen her brain after an overdose. She admits to being a worrier with bad anxiety. She also says she has hyperactivity with her ADHD says jumping from one thing to the next. She also has trouble sitting still and racing thoughts. She initially seems to endorse having a history of m anic episodes but then seems to relay that it has been more her ADHD. She has never been hospitalized for any manic-type symptoms. PAST PSYCHIATRIC HISTORY: She most recently has been on Restoril 15 mg at bedtime for about a month which has been helpful for her. She has never taken trazodone. She has had multiple psychiatric admissions to different places including here [facility] and [facility]. She has taken an overdose of Tylenol at one point in time. She has never been on Effexor. She has been on Ativan, Xanax, Seroquel and Wellbutrin. She also makes reference to borderline personality disorder. She missed a history of recurrent episodes of depression. She initially endorses a history of manic-type episodes but then relays that she feels it's more her ADHD symptoms. She currently does see his [facility] counselor but no current psychiatrist. ALLERGIES: No known ALLERGIES CHEMICAL DEPENDENCY HISTORY: Patient reports that she has been using heroin lately almost every day. She denies any alcohol cocaine or marijuana use. She does also been using Xanax up the street. She has recently been on Suboxone. She was supposed to go to rehab on Saturday at [place]. She has been to [place] for rehab. FAMILY PSYCHIATRIC HISTORY: A lot of suicides in the family FAMILY CHEMICAL DEPENDENCY HISTORY: None known at this time SOCIAL HISTORY: Currently lives with her mom. She's never been and does not have any children. Regarding school she got her GED. MENTAL STATUS EXAM: She is alert and cooperative with the interview. Her speech is fluent, not rapid or pressured. Her mood is currently described as "excellent." She denies any current suicidal ideations. She denies any thoughts of harm to others. She denies any hallucinations. She does not make any terence delusional statements. Cognitively she appears very grossly intact. I do not note any significant disorientation. Insight is adequate, judgment shows evidence of recent impairment. STRENGTHS/WEAKNESSES: Strengths-some support; weaknesses-coping skills, substance use INTELLECTUAL FUNCTIONING: Average IMPRESSIONS: Major depressive disorder, recurrent; generalized anxiety disorder; rule out ADHD combined type; opioid use disorder; sedative hypnotic use disorder Plan: Increase her Effexor to 150 mg extended release by mouth daily at bedtime, add Lamictal 25 mg by mouth daily at bedtime for mood stabilization, add Mirapex 0.5 mg by mouth daily at bedtime for restless leg syndrome, discontinue trazodone. She remains on 15 minute checks expected to be in [facility] therapeutic environment. He discussed today at length her issues of difficulty with criminal system and how she craves street drugs. Thus I put her on ReVia 50 mg by mouth daily at bedtime and discussed long-term use of using the Vivitrol injections. (1) Major depressive disorder Current Visit: Yes Status: Acute Priority: High Code(s): F32.9 - MAJOR DEPRESSIVE DISORDER, SINGLE EPISODE, UNSPECIFIED SNOMED Code(s): 483643466 (2) Heroin overdose Current Visit: No Status: Acute Priority: High Code(s): T40.1X1A - POISONING BY HEROIN, ACCIDENTAL (UNINTENTIONAL), INIT ENCNTR SNOMED Code(s): 369614793
[2018-08-25] MEDS: IBUPROFEN 600 MG TAB PO PRN (15:19)
[2018-08-25] MEDS: LORazepam 1 MG TAB PO PRN (16:45)
--- NOTE | 2018-08-25 20:30 | P.PN ---
Subjective Progress Note Date: 08/25/18 Principal diagnosis: suicide Patient is a 28-year-old -[place] female with a past medical history of short-term memory loss secondary to anoxic injury, history of temporary dialysis secondary to overdose, and anxiety. Patient initially presented to the ER and was subsequently admitted to the mental health unit for suicidal ideation. Patient seen and examined at bedside. No neck pain, no difficulty swallowing, no nausea, tolerating diet. Objective - Vital Signs Vital signs: Vital Signs Temp 98.0 F 08/25/18 01:18 Pulse 78 08/25/18 08:22 Resp 16 08/25/18 01:18 BP 110/70 08/25/18 08:22 Pulse Ox 99 08/23/18 04:43 - Exam General: non toxic, no distress, appears at stated age Derm: + ecchymosis right side of neck, excoration midline on neck healing, warm, dry Head: atraumatic, normocephalic, symmetric Eyes: EOMI, no lid lag, anicteric sclera Mouth: no lip lesion, mucus membranes moist Cardiovascular: S1S2 reg, no murmur, positive posterior tibial pulse bilateral, Lungs: CTA bilateral, no rhonchi, no rales , no accessory muscle use Abdominal: soft, nontender to palpation, no guarding, no appreciable organomegaly Ext: no gross muscle atrophy, no edema, no contractures Neuro: CN II-XI grossly intact, no focal neuro deficits Psych: Alert, oriented, anxious, pacing, can't sit still - Labs CBC & Chem 7: 08/25/18 08:13 08/22/18 21:39 Assessment and Plan Assessment: edema right neck due to trauma - WBC normalized - suspect due to trauma - no further follow-up necessary - patient told to let nursing know if area become worse. Depressed TSH - check T4 to rule out hypertyroidism with anxiety and inability to focusOpiate withdrawal - prn zofran, imodium, motrin for symptom management. Started on maltrexone - catapres Tobacco abuse - cessation - nicotine replacement transaminitis with known Hep C -Mild elevation - follow with PCP on discharge Suicidal ideation - your psych management Thank you for allowing us to participate in the care of this patient. We will follow peripherally. Do not hesitate to contact us with questions. Someone can be reached from the [facility] hospitalist group at all hours of the day at [phone].
[2018-08-25] MEDS ORDERED: PRAMIPEXOLE 0.5 MG TAB PO SCH (21:00)
[2018-08-25] MEDS: NALTREXONE HCL 50 MG TAB PO SCH (21:06)
[2018-08-25] MEDS: VENLAFAXINE HCL ER 150 MG CAP PO SCH (21:06)
[2018-08-26] MEDS: ONDANSETRON 4 MG TAB PO PRN ×2 (00:57→13:08)
[2018-08-26] MEDS: cloNIDine HCL 0.1 MG TAB PO PRN ×2 (01:09→20:35)
[2018-08-26] MEDS: NICOTINE 14MG/24HR PATCH TRANSDERM SCH (08:42)
[2018-08-26] MEDS ORDERED: lamoTRIgine 25 MG TAB PO SCH ×2 (09:00→21:00)
--- NOTE | 2018-08-26 12:43 | P.PN ---
Subjective Progress Note Date: 08/26/18 Principal diagnosis: Major depressive disorder, recurrent; generalized anxiety disorder; rule out ADHD combined type; opioid use disorder; sedative hypnotic use disorder 08/26/2018:chart reviewed in detail and discussed with nursing staff as well as social work. Interview with patient today revealed that she had a bad night had nausea after taking one of the medications and not sure if it's the ReVia or the Effexor. She still remains depressed hyper vigilant hyperverbal and easily distracted throughout the interview. She denies any suicidal ideation today. She states that she is depressed and has had fleeting thoughts of suicide but can be safe on the unit. Objective - Vital Signs Vital signs: Vital Signs Temp 99.1 F 08/26/18 01:15 Pulse 63 08/26/18 01:15 Resp 16 08/26/18 01:15 BP 112/72 08/26/18 01:15 Pulse Ox 99 08/23/18 04:43 - Labs CBC & Chem 7: 08/25/18 08:13 08/22/18 21:39 Assessment and Plan Assessment: Allergies Allergy/AdvReac Type Severity Reaction Status Date / Time No Known Allergies Allergy Verified 08/23/18 03:51 Vital Signs Temp 98.6 F 08/23/18 04:43 Pulse 69 08/23/18 04:43 Resp 14 08/23/18 04:43 BP 109/63 08/23/18 04:43 Pulse Ox 99 08/23/18 04:43 Intake & Output 08/22/18 08/23/18 08/23/18 18:59 06:59 18:59 Weight 72.575 kg Laboratory Last Values WBC 13.1 k/uL (3.8-10.6) H 08/22/18 21:39 RBC 4.98 m/uL (3.80-5.40) 08/22/18 21:39 Hgb 14.1 gm/dL (11.4-16.0) 08/22/18 21:39 Hct 44.2 % (34.0-46.0) 08/22/18 21:39 MCV 88.7 fL (80.0-100.0) 08/22/18 21:39 MCH 28.3 pg (25.0-35.0) 08/22/18 21:39 MCHC 32.0 g/dL (31.0-37.0) 08/22/18 21:39 RDW 13.3 % (11.5-15.5) 08/22/18 21:39 Plt Count 181 k/uL (150-450) 08/22/18 21:39 Neutrophils % 89 % 08/22/18 21:39 Lymphocytes % 6 % 08/22/18 21:39 Monocytes % 3 % 08/22/18 21:39 Eosinophils % 1 % 08/22/18 21:39 Basophils % 0 % 08/22/18 21:39 Neutrophils # 11.7 k/uL (1.3-7.7) H 08/22/18 21:39 Lymphocytes # 0.7 k/uL (1.0-4.8) L 08/22/18 21:39 Monocytes # 0.4 k/uL (0-1.0) 08/22/18 21:39 Eosinophils # 0.1 k/uL (0-0.7) 08/22/18 21:39 Basophils # 0.0 k/uL (0-0.2) 08/22/18 21:39 Sodium 140 mmol/L (137-145) 08/22/18 21:39 Potassium 4.1 mmol/L (3.5-5.1) 08/22/18 21:39 Chloride 104 mmol/L (98-107) 08/22/18 21:39 Carbon Dioxide 28 mmol/L (22-30) 08/22/18 21:39 Anion Gap 8 mmol/L 08/22/18 21:39 BUN 11 mg/dL (7-17) 08/22/18 21:39 Creatinine 0.66 mg/dL (0.52-1.04) 08/22/18 21:39 Est GFR (CKD-EPI)AfAm >90 (>60 ml/min/1.73 sqM) 08/22/18 21:39 Est GFR (CKD-EPI)NonAf >90 (>60 ml/min/1.73 sqM) 08/22/18 21:39 Glucose 76 mg/dL (74-99) 08/22/18 21:39 Calcium 9.5 mg/dL (8.4-10.2) 08/22/18 21:39 Total Bilirubin 0.6 mg/dL (0.2-1.3) 08/22/18 21:39 AST 65 U/L (14-36) H 08/22/18 21:39 ALT 216 U/L (9-52) H 08/22/18 21:39 Alkaline Phosphatase 96 U/L (38-126) 08/22/18 21:39 Creatine Kinase 83 U/L (30-135) 08/22/18 21:39 Troponin I <0.012 ng/mL (0.000-0.034) 08/22/18 21:39 Total Protein 7.6 g/dL (6.3-8.2) 08/22/18 21:39 Albumin 4.5 g/dL (3.5-5.0) 08/22/18 21:39 Urine Color Colorless 08/22/18 22:26 Urine Appearance Clear (Clear) 08/22/18 22:26 Urine pH 6.0 (5.0-8.0) 08/22/18 22:26 Ur Specific [place] 1.004 (1.001-1.035) 08/22/18 22:26 Urine Protein Negative (Negative) 08/22/18 22:26 Urine Glucose (UA) Negative (Negative) 08/22/18 22:26 Urine Ketones Negative (Negative) 08/22/18 22:26 Urine Blood Negative (Negative) 08/22/18 22:26 Urine Nitrite Negative (Negative) 08/22/18 22:26 Urine Bilirubin Negative (Negative) 08/22/18 22:26 Urine Urobilinogen <2.0 mg/dL (<2.0) 08/22/18 22:26 Ur Leukocyte Esterase Negative (Negative) 08/22/18 22:26 Urine HCG, Qual Not Detected (Not Detectd) 08/22/18 22:26 Salicylates <1.0 mg/dL 08/22/18 21:39 Urine Opiates Screen Detected (NotDetected) H 08/22/18 22:26 Ur Oxycodone Screen Not Detected (NotDetected) 08/22/18 22:26 Urine Methadone Screen Not Detected (NotDetected) 08/22/18 22:26 Ur Propoxyphene Screen Not Detected (NotDetected) 08/22/18 22:26 Acetaminophen <10.0 ug/mL 08/22/18 21:39 Ur Barbiturates Screen Not Detected (NotDetected) 08/22/18 22:26 U Tricyclic Antidepress Not Detected (NotDetected) 08/22/18 22:26 Ur Phencyclidine Scrn Not Detected (NotDetected) 08/22/18 22:26 Ur Amphetamines Screen Not Detected (NotDetected) 08/22/18 22:26 U Methamphetamines Scrn Not Detected (NotDetected) 08/22/18 22:26 U Benzodiazepines Scrn Detected (NotDetected) H 08/22/18 22:26 Urine Cocaine Screen Not Detected (NotDetected) 08/22/18 22:26 U Marijuana (THC) Screen Not Detected (NotDetected) 08/22/18 22:26 Serum Alcohol <10 mg/dL 08/22/18 21:39 IDENTIFYING DATA: 28-year-old single female patient who is transgender HPI: Patient admitted to the inpatient psychiatric unit [facility] with concerns of thoughts of suicide. Patient states that she was saying that she wanted to yesterday to her mom. She says there is no specific triggers but just life in general. She admits to depression lately every day without specific plan of suicide. She states that she is also been using heroin IV and she used too much but it was not a suicide attempt. She states that her mom found her unresponsive and ambulance brought her to the hospital. She says it was not an intentional overdose. She feels fine physically today. She says she had an episode of feeling down today but now she feels better. Patient states that she feels she has ADHD but she's never been diagnosed with that. Says she's always had trouble with focus and attention. Says she tends to daydream and loses things. She also talks about short-term memory loss from a lack of oxygen her brain after an overdose. She admits to being a worrier with bad anxiety. She also says she has hyperactivity with her ADHD says jumping from one thing to the next. She also has trouble sitting still and racing thoughts. She initially seems to endorse having a history of manic episodes but then seems to relay that it has been more her ADHD. She has never been hospitalized for any manic-type symptoms. PAST PSYCHIATRIC HISTORY: She most recently has been on Restoril 15 mg at bedtime for about a month which has been helpful for her. She has had multiple psychiatric admissions to different places including here [facility]. She has taken an overdose of Tylenol at one point in time. She has never been on Effexor. She has been on Ativan, Xanax, Seroquel and Wellbutrin. She also makes reference to borderline personality disorder. She missed a history of recurrent episodes of depression. She initially endorses a history of manic-type episodes but then relays that she feels it's more her ADHD sympto ms. She currently does see his [facility] counselor but no current psychiatrist. MENTAL STATUS EXAM: She is alert and cooperative with the interview. Her speech is fluent, not rapid or pressured. Her mood is cycling in nature from depression to manuel. She has racing thoughts. She denies any current suicidal ideation. She denies any thoughts of harm to others. She denies any hallucinations. She does not make any terence delusional statements. Cognitively she appears limited but intact. I do not note any significant disorientation. Insight is adequate, judgment shows evidence of recent impairment. IMPRESSIONS: Major depressive disorder, recurrent; generalized anxiety disorder; rule out ADHD combined type; opioid use disorder; sedative hypnotic use disorder Plan: Increase her Effexor to 150 mg extended release by mouth daily at bedtime, add Lamictal 50 mg by mouth daily at bedtime for mood stabilization, add Mirapex 1 mg by mouth daily at bedtime for restless leg syndrome, discontinue trazodone. She remains on 15 minute checks expected to be in [facility] therapeutic environment. He discussed today at length her issues of difficulty with criminal system and how she craves street drugs. Thus I put her on ReVia 50 mg by mouth daily at bedtime and discussed long-term use of using the Vivitrol injections. (1) Major depressive disorder Current Visit: Yes Status: Acute Priority: Medium Code(s): F32.9 - MAJOR DEPRESSIVE DISORDER, SINGLE EPISODE, UNSPECIFIED SNOMED Code(s): 582557468 (2) Heroin overdose Current Visit: No Status: Acute Priority: Medium Code(s): T40.1X1A - POISONING BY HEROIN, ACCIDENTAL (UNINTENTIONAL), INIT ENCNTR SNOMED Code(s): 067717736
[2018-08-26] MEDS: LOPERAMIDE 2 MG CAP PO PRN (13:08)
[2018-08-26] MEDS: IBUPROFEN 600 MG TAB PO PRN (13:09)
[2018-08-26] MEDS: LORazepam 1 MG TAB PO PRN (13:11)
[2018-08-26] MEDS: VENLAFAXINE HCL ER 150 MG CAP PO SCH (20:31)
[2018-08-26] MEDS: NALTREXONE HCL 50 MG TAB PO SCH (20:31)
[2018-08-26] MEDS: PRAMIPEXOLE 1 MG TAB PO SCH (20:31)
[2018-08-27] MEDS: NICOTINE 14MG/24HR PATCH TRANSDERM SCH (08:17)
[2018-08-27] MEDS: LOPERAMIDE 2 MG CAP PO PRN (08:19)
[2018-08-27] MEDS: LORazepam 1 MG TAB PO PRN ×2 (08:19→16:42)
[2018-08-27] MEDS: ONDANSETRON 4 MG TAB PO PRN (08:20)
--- NOTE | 2018-08-27 13:31 | P.PN ---
Subjective Progress Note Date: 08/27/18 Principal diagnosis: Major depressive disorder, recurrent; generalized anxiety disorder; rule out ADHD combined type; opioid use disorder; sedative hypnotic use disorder 08/26/2018:chart reviewed in detail and discussed with nursing staff as well as social work. Interview with patient today revealed that she had a bad night had nausea after taking one of the medications and not sure if it's the ReVia or the Effexor. She still remains depressed hyper vigilant hyperverbal and easily distracted throughout the interview. She denies any suicidal ideation today. She states that she is depressed and has had fleeting thoughts of suicide but can be safe on the unit. 08/27/2018: Chart reviewed in detail especially nursing stated that she had small emesis and was not given ReVia therefore it may be the Effexor. Interviewed the patient in great detail today discussing her medicines and writing them down so she can relate them to her mother. She still has racing thoughts and poor concentration anxious and asking for sleeping pills which she discussed with not be appropriate in treating her underlying bipolar affective disorder. She tends to isolate at times in her room. She denies suicidal homicidal ideation today. She denies auditory hallucinations. Objective - Vital Signs Vital signs: Vital Signs Temp 98.6 F 08/27/18 05:56 Pulse 63 08/27/18 05:56 Resp 14 08/27/18 05:56 BP 126/76 08/27/18 05:56 Pulse Ox 99 08/23/18 04:43 - Labs CBC & Chem 7: 08/25/18 08:13 08/22/18 21:39 Assessment and Plan Assessment: Allergies Allergy/AdvReac Type Severity Reaction Status Date / Time No Known Allergies Allergy Verified 08/23/18 03:51 Vital Signs Temp 98.6 F 08/23/18 04:43 Pulse 69 08/23/18 04:43 Resp 14 08/23/18 04:43 BP 109/63 08/23/18 04:43 Pulse Ox 99 08/23/18 04:43 Intake & Output 08/22/18 08/23/18 08/23/18 18:59 06:59 18:59 Weight 72.575 kg Laboratory Last Values WBC 13.1 k/uL (3.8-10.6) H 08/22/18 21:39 RBC 4.98 m/uL (3.80-5.40) 08/22/18 21:39 Hgb 14.1 gm/dL (11.4-16.0) 08/22/18 21:39 Hct 44.2 % (34.0-46.0) 08/22/18 21:39 MCV 88.7 fL (80.0-100.0) 08/22/18 21:39 MCH 28.3 pg (25.0-35.0) 08/22/18 21:39 MCHC 32.0 g/dL (31.0-37.0) 08/22/18 21:39 RDW 13.3 % (11.5-15.5) 08/22/18 21:39 Plt Count 181 k/uL (150-450) 08/22/18 21:39 Neutrophils % 89 % 08/22/18 21:39 Lymphocytes % 6 % 08/22/18 21:39 Monocytes % 3 % 08/22/18 21:39 Eosinophils % 1 % 08/22/18 21:39 Basophils % 0 % 08/22/18 21:39 Neutrophils # 11.7 k/uL (1.3-7.7) H 08/22/18 21:39 Lymphocytes # 0.7 k/uL (1.0-4.8) L 08/22/18 21:39 Monocytes # 0.4 k/uL (0-1.0) 08/22/18 21:39 Eosinophils # 0.1 k/uL (0-0.7) 08/22/18 21:39 Basophils # 0.0 k/uL (0-0.2) 08/22/18 21:39 Sodium 140 mmol/L (137-145) 08/22/18 21:39 Potassium 4.1 mmol/L (3.5-5.1) 08/22/18 21:39 Chloride 104 mmol/L (98-107) 08/22/18 21:39 Carbon Dioxide 28 mmol/L (22-30) 08/22/18 21:39 Anion Gap 8 mmol/L 08/22/18 21:39 BUN 11 mg/dL (7-17) 08/22/18 21:39 Creatinine 0.66 mg/dL (0.52-1.04) 08/22/18 21:39 Est GFR (CKD-EPI)AfAm >90 (>60 ml/min/1.73 sqM) 08/22/18 21:39 Est GFR (CKD-EPI)NonAf >90 (>60 ml/min/1.73 sqM) 08/22/18 21:39 Glucose 76 mg/dL (74-99) 08/22/18 21:39 Calcium 9.5 mg/dL (8.4-10.2) 08/22/18 21:39 Total Bilirubin 0.6 mg/dL (0.2-1.3) 08/22/18 21:39 AST 65 U/L (14-36) H 08/22/18 21:39 ALT 216 U/L (9-52) H 08/22/18 21:39 Alkaline Phosphatase 96 U/L (38-126) 08/22/18 21:39 Creatine Kinase 83 U/L (30-135) 08/22/18 21:39 Troponin I <0.012 ng/mL (0.000-0.034) 08/22/18 21:39 Total Protein 7.6 g/dL (6.3-8.2) 08/22/18 21:39 Albumin 4.5 g/dL (3.5-5.0) 08/22/18 21:39 Urine Color Colorless 08/22/18 22:26 Urine Appearance Clear (Clear) 08/22/18 22:26 Urine pH 6.0 (5.0-8.0) 08/22/18 22:26 Ur Specific [place] 1.004 (1.001-1.035) 08/22/18 22:26 Urine Protein Negative (Negative) 08/22/18 22:26 Urine Glucose (UA) Negative (Negative) 08/22/18 22:26 Urine Ketones Negative (Negative) 08/22/18 22:26 Urine Blood Negative (Negative) 08/22/18 22:26 Urine Nitrite Negative (Negative) 08/22/18 22:26 Urine Bilirubin Negative (Negative) 08/22/18 22:26 Urine Urobilinogen <2.0 mg/dL (<2.0) 08/22/18 22:26 Ur Leukocyte Esterase Negative (Negative) 08/22/18 22:26 Urine HCG, Qual Not Detected (Not Detectd) 08/22/18 22:26 Salicylates <1.0 mg/dL 08/22/18 21:39 Urine Opiates Screen Detected (NotDetected) H 08/22/18 22:26 Ur Oxycodone Screen Not Detected (NotDetected) 08/22/18 22:26 Urine Methadone Screen Not Detected (NotDetected) 08/22/18 22:26 Ur Propoxyphene Screen Not Detected (NotDetected) 08/22/18 22:26 Acetaminophen <10.0 ug/mL 08/22/18 21:39 Ur Barbiturates Screen Not Detected (NotDetected) 08/22/18 22:26 U Tricyclic Antidepress Not Detected (NotDetected) 08/22/18 22:26 Ur Phencyclidine Scrn Not Detected (NotDetected) 08/22/18 22:26 Ur Amphetamines Screen Not Detected (NotDetected) 08/22/18 22:26 U Methamphetamines Scrn Not Detected (NotDetected) 08/22/18 22:26 U Benzodiazepines Scrn Detected (NotDetected) H 08/22/18 22:26 Urine Cocaine Screen Not Detected (NotDetected) 08/22/18 22:26 U Marijuana (THC) Screen Not Detected (NotDetected) 08/22/18 22:26 Serum Alcohol <10 mg/dL 08/22/18 21:39 IDENTIFYING DATA: 28-year-old single female patient who is transgender HPI: Patient admitted to the inpatient psychiatric unit [facility] with concerns of thoughts of suicide. Patient states that she was saying that she wanted to yesterday to her mom. She says there is no specific triggers but just life in general. She admits to depression lately every day without specific plan of suicide. She states that she is also been using heroin IV and she used too much but it was not a suicide attempt. She states that her mom found her unresponsive and ambulance brought her to the hospital. She says it was not an intentional overdose. She feels fine physically today. She says she had an episode of feeling down today but now she feels better. Patient states that she feels she has ADHD but she's never been diagnosed with that. Says she's always had trouble with focus and attention. Says she tends to daydream and loses things. She also talks about short-term memory loss from a lack of oxygen her brain after an overdose. She admits to being a worrier with bad anxiety. She also says she has hyperactivity with her ADHD says jumping from one thing to the next. She also has trouble sitting still and racing thoughts. She initially seems to endorse having a history of manic episodes but then seems to relay that it has been more her ADHD. She has never been hospitalized for any manic-type symptoms. PAST PSYCHIATRIC HISTORY: She most recently has been on Restoril 15 mg at bedtime for about a month which has been helpful for her. She has had multiple psychiatric admissions to different places including here [facility]. She has taken an overdose of Tylenol at one point in time. She has never been on Effexor. She has been on Ativan, Xanax, Seroquel and Wellbutrin. She also makes reference to borderline personality disorder. She missed a history of recurrent episodes of depression. She initially endorses a history of manic-type episodes but then relays that she feels it's more her ADHD sympto ms. She currently does see his [facility] counselor but no current psychiatrist. MENTAL STATUS EXAM: She is alert and cooperative with the interview. Her speech is fluent, not rapid or pressured. Her mood is cycling in nature from depression to manuel. She has racing thoughts. She denies any current suicidal ideation. She denies any thoughts of harm to others. She denies any hallucinations. She does not make any terence delusional statements. Cognitively she appears limited but intact. I do not note any significant disorientation. Insight is adequate, judgment shows evidence of recent impairment. IMPRESSIONS: Major depressive disorder, recurrent; generalized anxiety disorder; rule out ADHD combined type; opioid use disorder; sedative hypnotic use disorder Plan: Increase her Effexor to 150 mg extended release by mouth daily at bedtime, add Lamictal 50 mg by mouth daily at bedtime for mood stabilization, add Mirapex 1 mg by mouth daily at bedtime for restless leg syndrome, discontinue trazodone. She remains on 15 minute checks expected to be in [facility] therapeutic environment. He discussed today at length her issues of difficulty with criminal system and how she craves street drugs. Thus I put her on ReVia 50 mg by mouth daily at bedtime and discussed long-term use of using the [employer] injections. 08/27/2018: She remains on 15 minute checks on the unit and is per protocol for [address] [place] [address]. She is drug seeking for benzodiazepines for sleep. I discontinued the ReVia since it may be a reaction overall not sure that since she had nausea and attempted to, with little material. We'll increase her Lamictal tonight maintain her Effexor 150 mg XR and have written on her medications so that she can communicate that with her mother. She slept 5-1/2 h ours last night with the aid of Mirapex at bedtime. (1) Major depressive disorder Current Visit: Yes Status: Acute Priority: Medium Code(s): F32.9 - MAJOR DEPRESSIVE DISORDER, SINGLE EPISODE, UNSPECIFIED SNOMED Code(s): 941561160 (2) Heroin overdose Current Visit: No Status: Acute Priority: Medium Code(s): T40.1X1A - POISONING BY HEROIN, ACCIDENTAL (UNINTENTIONAL), INIT ENCNTR SNOMED Code(s): 532616229 Time with Patient: Less than 30
[2018-08-27] MEDS ORDERED: lamoTRIgine 100 MG TAB PO SCH (21:00)
[2018-08-27] MEDS: PRAMIPEXOLE 1 MG TAB PO SCH (21:23)
[2018-08-27] MEDS: VENLAFAXINE HCL ER 150 MG CAP PO SCH (21:23)
[2018-08-27] MEDS: IBUPROFEN 600 MG TAB PO PRN (21:26)
[2018-08-28] MEDS: NICOTINE 14MG/24HR PATCH TRANSDERM SCH (08:25)
[2018-08-28] MEDS: LORazepam 1 MG TAB PO PRN ×2 (08:25→21:22)
[2018-08-28] MEDS: ONDANSETRON 4 MG TAB PO PRN (08:25)
--- NOTE | 2018-08-28 15:34 | P.PN ---
Subjective Progress Note Date: 08/28/18 Principal diagnosis: Major depressive disorder, recurrent; generalized anxiety disorder; rule out ADHD combined type; opioid use disorder; sedative hypnotic use disorder 08/26/2018:chart reviewed in detail and discussed with nursing staff as well as social work. Interview with patient today revealed that she had a bad night had nausea after taking one of the medications and not sure if it's the ReVia or the Effexor. She still remains depressed hyper vigilant hyperverbal and easily distracted throughout the interview. She denies any suicidal ideation today. She states that she is depressed and has had fleeting thoughts of suicide but can be safe on the unit. 08/27/2018: Chart reviewed in detail especially nursing stated that she had small emesis and was not given ReVia therefore it may be the Effexor. Interviewed the patient in great detail today discussing her medicines and writing them down so she can relate them to her mother. She still has racing thoughts and poor concentration anxious and asking for sleeping pills which she discussed with not be appropriate in treating her underlying bipolar affective disorder. She tends to isolate at times in her room. She denies suicidal homicidal ideation today. She denies auditory hallucinations. 08/28/2018: Chart reviewed, discussed in team discharge and disposition for substance abuse treatment and patient told me that she will be going to group home after substance abuse treatment. She denies any suicidal homicidal ideation. She has no auditory or visual hallucinations. However she still remains drug seeking and have to redirect her to what is a healthy medication. Objective - Vital Signs Vital signs: Vital Signs Temp 98.6 F 08/27/18 05:56 Pulse 63 08/27/18 05:56 Resp 14 08/27/18 05:56 BP 126/76 08/27/18 05:56 Pulse Ox 99 08/23/18 04:43 - Labs CBC & Chem 7: 08/25/18 08:13 08/22/18 21:39 Assessment and Plan Assessment: Allergies Allergy/AdvReac Type Severity Reaction Status Date / Time No Known Allergies Allergy Verified 08/23/18 03:51 Vital Signs Temp 98.6 F 08/23/18 04:43 Pulse 69 08/23/18 04:43 Resp 14 08/23/18 04:43 BP 109/63 08/23/18 04:43 Pulse Ox 99 08/23/18 04:43 Intake & Output 08/22/18 08/23/18 08/23/18 18:59 06:59 18:59 Weight 72.575 kg Laboratory Last Values WBC 13.1 k/uL (3.8-10.6) H 08/22/18 21:39 RBC 4.98 m/uL (3.80-5.40) 08/22/18 21:39 Hgb 14.1 gm/dL (11.4-16.0) 08/22/18 21:39 Hct 44.2 % (34.0-46.0) 08/22/18 21:39 MCV 88.7 fL (80.0-100.0) 08/22/18 21:39 MCH 28.3 pg (25.0-35.0) 08/22/18 21:39 MCHC 32.0 g/dL (31.0-37.0) 08/22/18 21:39 RDW 13.3 % (11.5-15.5) 08/22/18 21:39 Plt Count 181 k/uL (150-450) 08/22/18 21:39 Neutrophils % 89 % 08/22/18 21:39 Lymphocytes % 6 % 08/22/18 21:39 Monocytes % 3 % 08/22/18 21:39 Eosinophils % 1 % 08/22/18 21:39 Basophils % 0 % 08/22/18 21:39 Neutrophils # 11.7 k/uL (1.3-7.7) H 08/22/18 21:39 Lymphocytes # 0.7 k/uL (1.0-4.8) L 08/22/18 21:39 Monocytes # 0.4 k/uL (0-1.0) 08/22/18 21:39 Eosinophils # 0.1 k/uL (0-0.7) 08/22/18 21:39 Basophils # 0.0 k/uL (0-0.2) 08/22/18 21:39 Sodium 140 mmol/L (137-145) 08/22/18 21:39 Potassium 4.1 mmol/L (3.5-5.1) 08/22/18 21:39 Chloride 104 mmol/L (98-107) 08/22/18 21:39 Carbon Dioxide 28 mmol/L (22-30) 08/22/18 21:39 Anion Gap 8 mmol/L 08/22/18 21:39 BUN 11 mg/dL (7-17) 08/22/18 21:39 Creatinine 0.66 mg/dL (0.52-1.04) 08/22/18 21:39 Est GFR (CKD-EPI)AfAm >90 (>60 ml/min/1.73 sqM) 08/22/18 21:39 Est GFR (CKD-EPI)NonAf >90 (>60 ml/min/1.73 sqM) 08/22/18 21:39 Glucose 76 mg/dL (74-99) 08/22/18 21:39 Calcium 9.5 mg/dL (8.4-10.2) 08/22/18 21:39 Total Bilirubin 0.6 mg/dL (0.2-1.3) 08/22/18 21:39 AST 65 U/L (14-36) H 08/22/18 21:39 ALT 216 U/L (9-52) H 08/22/18 21:39 Alkaline Phosphatase 96 U/L (38-126) 08/22/18 21:39 Creatine Kinase 83 U/L (30-135) 08/22/18 21:39 Troponin I <0.012 ng/mL (0.000-0.034) 08/22/18 21:39 Total Protein 7.6 g/dL (6.3-8.2) 08/22/18 21:39 Albumin 4.5 g/dL (3.5-5.0) 08/22/18 21:39 Urine Color Colorless 08/22/18 22:26 Urine Appearance Clear (Clear) 08/22/18 22:26 Urine pH 6.0 (5.0-8.0) 08/22/18 22:26 Ur Specific [place] 1.004 (1.001-1.035) 08/22/18 22:26 Urine Protein Negative (Negative) 08/22/18 22: Urine Glucose (UA) Negative (Negative) 08/22/18 22:26 Urine Ketones Negative (Negative) 08/22/18 22:26 Urine Blood Negative (Negative) 08/22/18 22:26 Urine Nitrite Negative (Negative) 08/22/18 22: Urine Bilirubin Negative (Negative) 08/22/18 22:26 Urine Urobilinogen <2.0 mg/dL (<2.0) 08/22/18 22:26 Ur Leukocyte Esterase Negative (Negative) 08/22/18 22:26 Urine HCG, Qual Not Detected (Not Detectd) 08/22/18 22:26 Salicylates <1.0 mg/dL 08/22/18 21:39 Urine Opiates Screen Detected (NotDetected) H 08/22/18 22:26 Ur Oxycodone Screen Not Detected (NotDetected) 08/22/18 22:26 Urine Methadone Screen Not Detected (NotDetected) 08/22/18 22:26 Ur Propoxyphene Screen Not Detected (NotDetected) 08/22/18 22:26 Acetaminophen <10.0 ug/mL 08/22/18 21:39 Ur Barbiturates Screen Not Detected (NotDetected) 08/22/18 22:26 U Tricyclic Antidepress Not Detected (NotDetected) 08/22/18 22:26 Ur Phencyclidine Scrn Not Detected (NotDetected) 08/22/18 22:26 Ur Amphetamines Screen Not Detected (NotDetected) 08/22/18 22:26 U Methamphetamines Scrn Not Detected (NotDetected) 08/22/18 22:26 U Benzodiazepines Scrn Detected (NotDetected) H 08/22/18 22:26 Urine Cocaine Screen Not Detected (NotDetected) 08/22/18 22:26 U Marijuana (THC) Screen Not Detected (NotDetected) 08/22/18 22:26 Serum Alcohol <10 mg/dL 08/22/18 21:39 IDENTIFYING DATA: 28-year-old single female patient who is transgender HPI: Patient admitted to the inpatient psychiatric unit [facility] with concerns of thoughts of suicide. Patient states that she was saying that she wanted to yesterday to her mom. She says there is no specific triggers but just life in general. She admits to depression lately every day without specific plan of suicide. She states that she is also been using heroin IV and she used too much but it was not a suicide attempt. She states that her mom found her unresponsive and ambulance brought her to the hospital. She says it was not an intentional overdose. She feels fine physically today. She says she had an episode of feeling down today but now she feels better. Patient states that she feels she has ADHD but she's never been diagnosed with that. Says she's always had trouble with focus and attention. Says she tends to daydream and loses things. She also talks about short-term memory loss from a lack of oxygen her brain after an overdose. She admits to being a worrier with bad anxiety. She also says she has hyperactivity with her ADHD says jumping from one thing to the next. She also has trouble sitting still and racing thoughts. She initially seems to endorse having a history of manic episodes but then seems to relay that it has been more her ADHD. She has never been hospitalized for any manic-type symptoms. PAST PSYCHIATRIC HISTORY: She most recently has been on Restoril 15 mg at bedtime for about a month which has been helpful for her. She has had multiple psychiatric admissions to different places including here [facility]. She has taken an overdose of Tylenol at one point in time. She has never been on Effexor. She has been on Ativan, Xanax, Seroquel and Wellbutrin. She also makes reference to borderline personality disorder. She missed a history of recurrent episodes of depression. She initially endorses a history of manic-type episodes but then relays that she feels it's more her ADHD symptoms. She currently does see his [facility] counselor but no current psychiatrist. MENTAL STATUS EXAM: She is alert and cooperative with the interview. Her speech is fluent, not rapid or pressured. Her mood is cycling in nature from depression to manuel. She has racing thoughts. She denies any current suicidal ideation. She denies any thoughts of harm to others. She denies any hallucinations. She does not make any terence delusional statements. Cognitively she appears limited but intact. I do not note any significant disorientation. Insight is adequate, judgment shows evidence of recent impairment. IMPRESSIONS: Major depressive disorder, recurrent; generalized anxiety disorder; rule out ADHD combined type; opioid use disorder; sedative hypnotic use disorder Plan: Increase her Effexor to 150 mg extended release by mouth daily at bedtime, add Lamictal 50 mg by mouth daily at bedtime for mood stabilization, add Mirapex 1 mg by mouth daily at bedtime for restless leg syndrome, discontinue trazodone. She remains on 15 minute checks expected to be in [facility] environment. He discussed today at length her issues of difficulty with criminal system and how she craves street drugs. Thus I put her on ReVia 50 mg by mouth daily at bedtime and discussed long-term use of using the Vivitrol inj ections. 08/27/2018: She remains on 15 minute checks on the unit and is per protocol for [address] [place] [address]. She is drug seeking for benzodiazepines for sleep. I discontinued the ReVia since it may be a reaction overall not sure that since she had nausea and attempted to, with little material. We'll increase her Lamictal tonight maintain her Effexor 150 mg XR and have written on her med ications so that she can communicate that with her mother. She slept 5-1/2 hours last night with the aid of Mirapex at bedtime. 08/28/2018: She remains on 15 minute checks and she will be discharged in the morning and the orders written. She remains on Lamictal, Effexor, Mirapex and Catapres. (1) Major depressive disorder Current Visit: Yes Status: Acute Priority: Medium Code(s): F32.9 - MAJOR DEPRESSIVE DISORDER, SINGLE EPISODE, UNSPECIFIED SNOMED Code(s): 459622111 (2) Heroin overdose Current Visit: No Status: Acute Priority: Medium Code(s): T40.1X1A - POISONING BY HEROIN, ACCIDENTAL (UNINTENTIONAL), INIT ENCNTR SNOMED Code(s): 780970250
[2018-08-28] MEDS: lamoTRIgine 100 MG TAB PO SCH (21:17)
[2018-08-28] MEDS: PRAMIPEXOLE 1 MG TAB PO SCH (21:18)
[2018-08-28] MEDS: VENLAFAXINE HCL ER 150 MG CAP PO SCH (21:18)
[2018-08-29 02:14] VITALS: BP 121/79; PULSE 78; RESP 16; TEMP 97.6
[2018-08-29] MEDS: lamoTRIgine 100 MG TAB PO SCH (07:34)
[2018-08-29] MEDS: NICOTINE 14MG/24HR PATCH TRANSDERM SCH (07:34)
[2018-08-29] MEDS: LORazepam 1 MG TAB PO PRN (07:36)
--- NOTE | 2018-08-29 13:29 | P.DS ---
Providers Date of admission: 08/23/18 03:35 Expected date of discharge: 08/29/18 Attending physician: Yves Lane DO Consults: 08/23/18 03:53 Consult Physician Routine Consulting Provider: Rafaela Aragon Consult Reason/Comments: H and P medical Do you want consulting provider notified?: Yes, Notify in am Primary care physician: Felton Gross - Discharge Diagnosis(es) (1) Major depressive disorder Allergies Allergy/AdvReac Type Severity Reaction Status Date / Time No Known Allergies Allergy Verified 08/23/18 03:51 Vital Signs Temp 98.6 F 08/23/18 04:43 Pulse 69 08/23/18 04:43 Resp 14 08/23/18 04:43 BP 109/63 08/23/18 04:43 Pulse Ox 99 08/23/18 04:43 Intake & Output 08/22/18 08/23/18 08/23/18 18:59 06:59 18:59 Weight 72.575 kg Laboratory Last Values WBC 13.1 k/uL (3.8-10.6) H 08/22/18 21:39 RBC 4.98 m/uL (3.80-5.40) 08/22/18 21:39 Hgb 14.1 gm/dL (11.4-16.0) 08/22/18 21:39 Hct 44.2 % (34.0-46.0) 08/22/18 21:39 MCV 88.7 fL (80.0-100.0) 08/22/18 21:39 MCH 28.3 pg (25.0-35.0) 08/22/18 21:39 MCHC 32.0 g/dL (31.0-37.0) 08/22/18 21:39 RDW 13.3 % (11.5-15.5) 08/22/18 21:39 Plt Count 181 k/uL (150-450) 08/22/18 21:39 Neutrophils % 89 % 08/22/18 21:39 Lymphocytes % 6 % 08/22/18 21:39 Monocytes % 3 % 08/22/18 21:39 Eosinophils % 1 % 08/22/18 21:39 Basophils % 0 % 08/22/18 21:39 Neutrophils # 11.7 k/uL (1.3-7.7) H 08/22/18 21:39 Lymphocytes # 0.7 k/uL (1.0-4.8) L 08/22/18 21:39 Monocytes # 0.4 k/uL (0-1.0) 08/22/18 21:39 Eosinophils # 0.1 k/uL (0-0.7) 08/22/18 21:39 Basophils # 0.0 k/uL (0-0.2) 08/22/18 21:39 Sodium 140 mmol/L (137-145) 08/22/18 21:39 Potassium 4.1 mmol/L (3.5-5.1) 08/22/18 21:39 Chloride 104 mmol/L (98-107) 08/22/18 21:39 Carbon Dioxide 28 mmol/L (22-30) 08/22/18 21:39 Anion Gap 8 mmol/L 08/22/18 21:39 BUN 11 mg/dL (7-17) 08/22/18 21:39 Creatinine 0.66 mg/dL (0.52-1.04) 08/22/18 21:39 Est GFR (CKD-EPI)AfAm >90 (>60 ml/min/1.73 sqM) 08/22/18 21:39 Est GFR (CKD-EPI)NonAf >90 (>60 ml/min/1.73 sqM) 08/22/18 21:39 Glucose 76 mg/dL (74-99) 08/22/18 21:39 Calcium 9.5 mg/dL (8.4-10.2) 08/22/18 21:39 Total Bilirubin 0.6 mg/dL (0.2-1.3) 08/22/18 21:39 AST 65 U/L (14-36) H 08/22/18 21:39 ALT 216 U/L (9-52) H 08/22/18 21:39 Alkaline Phosphatase 96 U/L (38-126) 08/22/18 21:39 Creatine Kinase 83 U/L (30-135) 08/22/18 21:39 Troponin I <0.012 ng/mL (0.000-0.034) 08/22/18 21:39 Total Protein 7.6 g/dL (6.3-8.2) 08/22/18 21:39 Albumin 4.5 g/dL (3.5-5.0) 08/22/18 21:39 Urine Color Colorless 08/22/18: Urine Appearance Clear (Clear) 08/22/18: Urine pH 6.0 (5.0-8.0) 08/22/18 22: Ur Specific [place] 1.004 (1.001-1.035) 08/22/18 22:26 Urine Protein Negative (Negative) 08/22/18: Urine Glucose (UA) Negative (Negative) 08/22/18: Urine Ketones Negative (Negative) 08/22/18 22: Urine Blood Negative (Negative) 08/22/18: Urine Nitrite Negative (Negative) 08/22/18: Urine Bilirubin Negative (Negative) 08/22/18: Urine Urobilinogen <2.0 mg/dL (<2.0) 08/22/18: Ur Leukocyte Esterase Negative (Negative) 08/22/18: Urine HCG, Qual Not Detected (Not Detectd) 08/22/18: Salicylates <1.0 mg/dL 08/22/18 21:39 Urine Opiates Screen Detected (NotDetected) H 08/22/18 22:26 Ur Oxycodone Screen Not Detected (NotDetected) 08/22/18 22: Urine Methadone Screen Not Detected (NotDetected) 08/22/18 22: Ur Propoxyphene Screen Not Detected (NotDetected) 08/22/18 22: Acetaminophen <10.0 ug/mL 08/22/18 21:39 Ur Barbiturates Screen Not Detected (NotDetected) 08/22/18 22: U Tricyclic Antidepress Not Detected (NotDetected) 08/22/18 22:26 Ur Phencyclidine Scrn Not Detected (NotDetected) 08/22/18 22:26 Ur Amphetamines Screen Not Detected (NotDetected) 08/22/18 22:26 U Methamphetamines Scrn Not Detected (NotDetected) 08/22/18 22:26 U Benzodiazepines Scrn Detected (NotDetected) H 08/22/18 22:26 Urine Cocaine Screen Not Detected (NotDetected) 08/22/18 22:26 U Marijuana (THC) Screen Not Detected (NotDetected) 08/22/18 22:26 Serum Alcohol <10 mg/dL 08/22/18 21:39 IDENTIFYING DATA: 28-year-old single female patient HPI: Patient admitted to the inpatient psychiatric unit [facility] with concerns of thoughts of suicide. Patient states that she was saying that she wanted to yesterday to her mom. She says there is no specific triggers but just life in general. She admits to depression lately every day without specific plan of suicide. She states that she is also been using heroin IV and she used too much but it was not a suicide attempt. She states that her mom found her unresponsive and ambulance brought her to the hospital. She says it was not an intentional overdose. She feels fine phy sically today. She says she had an episode of feeling down today but now she feels better. Patient states that she feels she has ADHD but she's never been diagnosed with that. Says she's always had trouble with focus and attention. Says she tends to daydream and loses things. She also talks about short-term memory loss from a lack of oxygen her brain after an overdose. She admits to being a worrier with bad anxiety. She also says she has hyperactivity with her ADHD says jumping from one thing to the next. She also has trouble sitting still and racing thoughts. She initially seems to endorse having a history of manic episodes but then seems to relay that it has been more her ADHD. She has never been hospitalized for any manic-type symptoms. PAST PSYCHIATRIC HISTORY: She most recently has been on Restoril 15 mg at bedtime for about a month which has been helpful for her. She has never taken trazodone. She has had multiple psychiatric admissions to different places including here [facility] and [facility]. She has taken an overdose of Tylenol at one point in time. She has never been on Effexor. She has been on Ativan, Xanax, Seroquel and Wellbutrin. She also makes reference to borderline personality disorder. She missed a history of recurrent episodes of depression. She initially endorses a history of manic-type episodes but then relays that she feels it's more her ADHD symptoms. She currently does see his [facility] counselor but no current psychiatrist. PMH: Denies ALLERGIES: No known ALLERGIES MEDICATIONS: Tylenol when necessary, Maalox when necessary, Ativan when necessary, milk of magnesia when necessary, Habitrol patch, Geodon when necessary CHEMICAL DEPENDENCY HISTORY: Patient reports that she has been using heroin lately almost every day. She denies any alcohol cocaine or marijuana use. She does also been using Xanax up the street. She has recently been on Suboxone. She was supposed to go to rehab on Saturday at [facility]. She has been to [facility] for rehab. FAMILY PSYCHIATRIC HISTORY: A lot of suicides in the family FAMILY CHEMICAL DEPENDENCY HISTORY: None known at this time SOCIAL HISTORY: Currently lives with her mom. She's never been and does not have any children. Regarding school she got her GED. MENTAL STATUS EXAM: She is alert and cooperative with the interview. Her speech is fluent, not rapid or pressured. Her mood is currently described as "excellent." She denies any current suicidal ideations. She denies any thoughts of harm to others. She denies any hallucinations. She does not make any terence delusional statements. Cognitively she appears very grossly intact. I do not note any significant disorientation. Insight is adequate, judgment shows evidence of recent impairment. STRENGTHS/WEAKNESSES: Strengths-some support; weaknesses-coping skills, substance use INTELLECTUAL FUNCTIONING: Average IMPRESSIONS: Major depressive disorder, recurrent; generalized anxiety disorder; rule out ADHD combined type; opioid use disorder; sedative hypnotic use disorder Status: Acute Priority: Low (2) Heroin overdose Status: Acute Priority: Low Hospital Course: Plan: Increase her Effexor to 150 mg extended release by mouth daily at bedtime, add Lamictal 50 mg by mouth daily at bedtime for mood stabilization, add Mirapex 1 mg by mouth daily at bedtime for restless leg syndrome, discontinue trazodone. She remains on 15 minute checks expected to be in [facility] therapeutic environment. He discussed today at length her issues of difficulty with criminal system and how she craves street drugs. Thus I put her on ReVia 50 mg by mouth daily at bedtime and discussed long-term use of using the Vivitrol injections. 08/27/2018: She remains on 15 minute checks on the unit and is per protocol for [address] [place] [address]. She is drug seeking for benzodiazepines for sleep. I discontinued the ReVia since it may be a reaction overall not sure that since she had nausea and attempted to, with little material. We'll increase her Lamictal tonight maintain her Effexor 150 mg XR and have written on her medications so that she can communicate that with her mother. She slept 5-1/2 hours last night with the aid of Mirapex at bedtime. 08/28/2018: She remains on 15 minute checks and she will be discharged in the morning and the orders written. She remains on Lamictal, Effexor, Mirapex and Catapres. Discharge diagnoses: Bipolar affective disorder, polysubstance abuse especially opiates Mental status examination time of discharge on 08/29/2018: The patient presents alert, pleasant, and cooperative. There calmly seated without any agitated behavior. [She] reports that [her] mood is good. Affect is congruent and euthymic. [She] deny having any suicidal or homicidal ideation intent or plan. [She] denies any auditory or visual hallucinations. There is no evidence of any delusional thought content. [Her] thought process is linear and goal-directed. [Her] speech is fluent and nonpressured. [Her] memory and concentration is grossly intact for the purposes of this session. Patient Condition at Discharge: Stable Plan - Discharge Summary Discharge Rx Participant: Yes New Discharge Prescriptions: New cloNIDine HCL [Catapres] 0.1 mg PO TID PRN 30 Days #60 tab PRN Reason: opioid withdrawal Venlafaxine HCl ER [Effexor XR] 150 mg PO 2100 30 Days #30 cap.er.24h lamoTRIgine [LaMICtal] 200 mg PO BID 30 Days #120 tab Pramipexole [Mirapex] 1 mg PO 2100 30 Days #30 tab Discontinued Temazepam [Restoril] 15 mg PO HS Buprenorphine HCl/Naloxone HCl [Suboxone 8 mg-2 mg Sl Film] 0.5 film SL BID Discharge Medication List Pramipexole [Mirapex] 1 mg PO 2100 30 Days #30 tab 08/28/18 [Rx] Venlafaxine HCl ER [Effexor XR] 150 mg PO 2100 30 Days #30 cap.er.24h 08/28/18 [Rx] cloNIDine HCL [Catapres] 0.1 mg PO TID PRN 30 Days #60 tab 08/28/18 [Rx] lamoTRIgine [LaMICtal] 200 mg PO BID 30 Days #120 tab 08/28/18 [Rx] Follow up Appointment(s)/Referral(s): intake,intake [Other] - 08/29/18 12:00 pm Felton Perez DO [Primary Care Provider] - 1-2 days Patient Instructions/Handouts: Bipolar Disorder (DC), Suicide Prevention (DC) Activity/Diet/Wound Care/Special Instructions: Activity and diet as tolerated. No guns or weapons in the home. Take all medications as prescribed and attend all follow up appointments as scheduled. Refrain from alcohol and street drugs not prescribed by your physician. If in need of of medication refills, please go to your primary care physician or to your outpatient psychiatric provider. If in crisis please call . Discharge Disposition: HOME SELF-CARE
== END 2018-08-29 08:48 | disposition home or self-care (01) | DRG 885 ==
LOC: EC 20:17 → EEVIPCON 20:17 → 3MHU 08-23 03:35
PROVIDERS: ADMIT Psychiatry & Neurology Psychiatry; ATTEND Psychiatry & Neurology Psychiatry
DX: F31.9 Bipolar disorder, unspecified (principal); F11.23 Opioid dependence with withdrawal; F60.3 Borderline personality disorder; G25.81 Restless legs syndrome; F41.1 Generalized anxiety disorder; B19.20 Unspecified viral hepatitis C without hepatic coma; T39.1X2A Poisoning by 4-Aminophenol derivatives, intentional self-harm, initial encounter; T40.1X2A Poisoning by heroin, intentional self-harm, initial encounter; F12.10 Cannabis abuse, uncomplicated; F17.210 Nicotine dependence, cigarettes, uncomplicated; Z71.6 Tobacco abuse counseling; Z79.899 Other long term (current) drug therapy; Z91.5 Personal history of self-harm; Z76.5 Malingerer [conscious simulation]; Z87.828 Personal history of other (healed) physical injury and trauma; Z87.820 Personal history of traumatic brain injury; Z81.8 Family history of other mental and behavioral disorders; Z82.49 Family history of ischemic heart disease and other diseases of the circulatory system
CPT/HCPCS: 36415; 80053; 80061; 80306; 80320; 80329; 81003; 81025; 82075; 82550; 83036; 83520; 84439; 84443; 84484; 85025; 85027; 93005; 96360; 96361; 99285

== ENCOUNTER 2019-02-11 16:29 | Emergency (ER) | payer OTHER ==
[2019-02-11 16:45] VITALS: BP 123/71; PULSE 75; RESP 18; TEMP 97.7
--- NOTE | 2019-02-11 16:57 | ED ---
Skin/Abscess/FB HPI - General Chief complaint: Skin/Abscess/Foreign Body Stated complaint: blisters on rt foot Time Seen by Provider: 02/11/19 16:49 Source: patient, RN notes reviewed Mode of arrival: ambulatory Limitations: no limitations - History of Present Illness Initial comments: 28 show female presents emergency Department chief complaint of blister on her foot. Patient states it started a few days ago. Patient states that she had new shoes No active bleeding no redness. No fevers or chills. Patient states that she has not changed her shoes since they started and states that she's but no barrier over the posterior. - Related Data Previous Rx's Medication Instructions Recorded Pramipexole [Mirapex] 1 mg PO 2100 30 Days #30 tab 08/28/18 Venlafaxine HCl ER [Effexor XR] 150 mg PO 2100 30 Days #30 08/28/18 cap.er.24h cloNIDine HCL [Catapres] 0.1 mg PO TID PRN 30 Days #60 tab 08/28/18 lamoTRIgine [LaMICtal] 200 mg PO BID 30 Days #120 tab 08/28/18 Allergies Allergy/AdvReac Type Severity Reaction Status Date / Time No Known Allergies Allergy Verified 08/23/18 03:51 Review of Systems ROS Statement: Those systems with pertinent positive or pertinent negative responses have been documented in the HPI. ROS Other: All systems not noted in ROS Statement are negative. Past Medical History Past Medical History: No Reported History Additional Past Medical History / Comment(s): kidney failure 2011 with dialysis, on life support at [facility] 07/13 after drug overdose, concusion in 2002 from fall while skateboarding, short-term memory loss History of Any Multi-Drug Resistant Organisms: None Reported Additional Past Surgical History / Comment(s): plastic surgery on lip Past Anesthesia/Blood Transfusion Reactions: No Reported Reaction Past Psychological History: Anxiety, Bipolar, Depression Smoking Status: Current every day smoker Past Alcohol Use History: Occasional Past Drug Use History: Heroin, Marijuana, Prescription Drug Abuse - Past Family History Mother Additional Family Medical History / Comment(s): depression, multiple people with suicide attempts Father Family Medical History: Hypertension General Exam Limitations: no limitations General appearance: alert, in no apparent distress Head exam: Present: atraumatic, normocephalic, normal inspection Respiratory exam: Present: normal lung sounds bilaterally. Absent: respiratory distress, wheezes, rales, rhonchi, stridor Cardiovascular Exam: Present: regular rate, normal rhythm, normal heart sounds. Absent: systolic murmur, diastolic murmur, rubs, gallop, clicks Extremities exam: Present: other (Right foot there is blistering noted on the first digit, right lateral heel no erythema no drainage) Course Vital Signs 02/11/19 16:41 Temperature 97.7 F Pulse Rate 75 Respiratory 18 Rate Blood Pressure 123/71 O2 Sat by Pulse 100 Oximetry Medical Decision Making - Medical Decision Making Patient has close blisters on her foot with no signs of infection. We discussed care of the wounds and instructed not open her wounds. Disposition Clinical Impression: Blister of foot, right Disposition: HOME SELF-CARE Condition: Stable Instructions (If sedation given, give patient instructions): Blister (ED) Additional Instructions: Please return to the Emergency Department if symptoms worsen or any other concerns. Is patient prescribed a controlled substance at d/c from ED?: No Referrals: Felton Perez DO [Primary Care Provider] - 1-2 days Time of Disposition: 16:56
== END 2019-02-11 17:02 | disposition home or self-care (01) ==
LOC: EC 16:29
DX: S90.821A Blister (nonthermal), right foot, initial encounter (principal); F17.200 Nicotine dependence, unspecified, uncomplicated; Z99.2 Dependence on renal dialysis; X58.XXXA Exposure to other specified factors, initial encounter
CPT/HCPCS: 99283

== ENCOUNTER → 2019-03-30 | Outpatient (CLI) | payer OTHER | END | disposition home or self-care (01) | LOC: LABWHC1 14:45 | PROVIDERS: ATTEND Family Medicine | DX: B19.20 Unspecified viral hepatitis C without hepatic coma (principal) | CPT/HCPCS: 36415; 87522 ==

== ENCOUNTER 2019-04-10 19:59 | Inpatient (IN) | payer MEDICAID, OTHER ==
--- NOTE | 2019-04-10 20:36 | ED ---
General Adult HPI - General Source: patient, EMS, RN notes reviewed, old records reviewed Mode of arrival: EMS Limitations: no limitations <Quincy Partida - Last Filed: 04/10/19 20:34> <Maru Ware - Last Filed: 04/10/19 22:17> - General Chief complaint: Psychiatric Symptoms Stated complaint: overdose Time Seen by Provider: 04/10/19 20:14 - History of Present Illness Initial comments: 28-year-old female presents as overdose. Patient has long history of heroin abuse. She admits to using IV heroin. She was given Narcan intranasally by her family members for unresponsiveness and apnea. When EMS arrived she was given additional 2 mg of intranasal Narcan. At the time my evaluation she is alert and oriented. She has no physical complaints. She admits to using heroin. Denies suicidal or homicidal ideation. She is brought in by police and has been petitioned by her mother for mental health evaluation. (Quincy Partida) - Related Data Home Medications Medication Instructions Recorded Confirmed Buprenorphine HCl/Naloxone HCl 1 film SL BID 04/10/19 04/10/19 [Suboxone 8 mg-2 mg Sl Film] cloNIDine HCL [Catapres] 0.1 mg PO BID@0800,1200 04/10/19 04/10/19 cloNIDine HCL [Catapres] 0.2 mg PO HS 04/10/19 04/10/19 lamoTRIgine [LaMICtal] 200 mg PO BID 04/10/19 04/10/19 traZODone HCL 100 mg PO HS 04/10/19 04/10/19 Allergies Allergy/AdvReac Type Severity Reaction Status Date / Time No Known Allergies Allergy Verified 04/10/19 21:13 Review of Systems ROS Other: All systems not noted in ROS Statement are negative. <Quincy Partida - Last Filed: 04/10/19 20:34> ROS Other: All systems not noted in ROS Statement are negative. <Maru Ware - Last Filed: 04/10/19 22:17> ROS Statement: Those systems with pertinent positive or pertinent negative responses have been documented in the HPI. Past Medical History Past Medical History: No Reported History Additional Past Medical History / Comment(s): kidney failure 2011 with dialysis, on life support at [facility] 07/13 after drug overdose, concusion in 2002 from fall while skateboarding, short-term memory loss History of Any Multi-Drug Resistant Organisms: None Reported Additional Past Surgical History / Comment(s): plastic surgery on lip Past Anesthesia/Blood Transfusion Reactions: No Reported Reaction Past Psychological History: Anxiety, Bipolar, Depression Smoking Status: Current every day smoker Past Alcohol Use History: Occasional Past Drug Use History: Heroin, Marijuana, Prescription Drug Abuse - Past Family History Mother Additional Family Medical History / Comment(s): depression, multiple people with suicide attempts Father Family Medical History: Hypertension <Quincy Partida - Last Filed: 04/10/19 20:34> General Exam Limitations: no limitations General appearance: alert, in no apparent distress Head exam: Present: atraumatic, normocephalic Eye exam: Present: normal appearance, PERRL, EOMI ENT exam: Present: normal exam Neck exam: Present: normal inspection. Absent: tenderness, meningismus Respiratory exam: Present: normal lung sounds bilaterally. Absent: respiratory distress, wheezes Cardiovascular Exam: Present: regular rate, normal rhythm GI/Abdominal exam: Present: soft. Absent: distended, tenderness, guarding Neurological exam: Present: alert, oriented X3, CN II-XII intact. Absent: motor sensory deficit Psychiatric exam: Present: normal affect, normal mood. Absent: depressed, suicidal ideation Skin exam: Present: warm, dry, intact <Quincy Partida - Last Filed: 04/10/19 20:34> Course <Quincy Partida - Last Filed: 04/10/19 20:34> Vital Signs 04/10/19 20:04 Temperature 98.3 F Pulse Rate 102 H Respiratory 18 Rate Blood Pressure 125/84 O2 Sat by Pulse 100 Oximetry - Reevaluation(s) Reevaluation #1: 04/10/19 2100 Patient medically cleared, awaiting EPS evaluation, care is signed out to Dr. Ware at shift change. (Quicny Partida) Medical Decision Making <Maru Ware - Last Filed: 04/10/19 22:17> - Medical Decision Making jeannie was signed out to me at shift change, this is a 28-year-old female with extensive past medical history including multiple drug overdoses in the past, patient has a legal guardian, Asians mother doesn't feel that she is safe for discharge home. Patient was evaluated by EPS who agrees with plan for admission for psychiatric evaluation. Patient is unwilling to sign in volunta rily. I've or sweats on and evaluated the patient and agree she is a danger to herself due to her impulsive behavior and drug use. Patient will be admitted the psychiatric unit. (Maru Ware) Disposition <Quincy Partida - Last Filed: 04/10/19 20:34> Is patient prescribed a controlled substance at d/c from ED?: No <Maru Ware - Last Filed: 04/10/19 22:17> Clinical Impression: Drug overdose Disposition: TRANSFER TO PSYCH HOSP/UNIT Condition: Stable Referrals: None,Stated [Primary Care Provider] - 1-2 days
[2019-04-11] MEDS ORDERED: LORazepam 1 MG TAB PO PRN
[2019-04-11] MEDS ORDERED: MAG HYDROX/AL HYDROX/SIMETH 30 ML CUP PO PRN
[2019-04-11] MEDS: traZODone HCL 100 MG TAB PO SCH ×2 (00:35→20:51)
[2019-04-11] MEDS: OLANZapine ODT 5 MG TAB PO PRN (00:36)
[2019-04-11] MEDS: cloNIDine HCL 0.1 MG TAB PO SCH ×4 (00:36→20:52)
[2019-04-11] MEDS: lamoTRIgine 100 MG TAB PO SCH ×2 (08:28→20:51)
[2019-04-11 08:47] LABS: Basophils % (A) 1 %; Eosinophils # (A) 0.1 k/uL (0-0.7); Eosinophils % (A) 3 %; HCT 36.9 % (34.0-46.0); HGB 12.3 gm/dL (11.4-16.0); Lymphocytes # (A) 1.7 k/uL (1.0-4.8); Lymphocytes % (A) 36 %; MCH 28.2 pg (25.0-35.0); MCHC 33.4 g/dL (31.0-37.0); MCV 84.6 fL (80.0-100.0); Mean Platelet Volume 8.1; Monocytes # (A) 0.3 k/uL (0-1.0); Monocytes % (A) 6 %; Neutrophils # (A) 2.4 k/uL (1.3-7.7); Neutrophils % (A) 52 %; Platelet Count 205 k/uL (150-450); RBC 4.36 m/uL (3.80-5.40); RDW 13.4 % (11.5-15.5); WBC 4.7 k/uL (3.8-10.6)
[2019-04-11] MEDS ORDERED: MAGNESIUM HYDROXIDE 2,400 MG/10 ML CUP PO PRN (09:00)
[2019-04-11 09:04] LABS: ALT 25 U/L (4-34); AST 34 U/L (14-36); African American GFR (CKD) >90 (>60 ml/min/1.73 sqM); Albumin 3.8 g/dL (3.5-5.0); Alkaline Phosphatase 60 U/L (38-126); Anion Gap 7 mmol/L; Blood Urea Nitrogen 10 mg/dL (7-17); Calcium 9.2 mg/dL (8.4-10.2); Carbon Dioxide 26 mmol/L (22-30); Chloride 107 mmol/L (98-107); Cholesterol 120 mg/dL (<200); Glucose 93 mg/dL (74-99); HDL Cholesterol 48 mg/dL (40-60); LDL Cholesterol,Calculated 61 mg/dL (0-99); Non-African American GFR(CKD) >90 (>60 ml/min/1.73 sqM); Potassium 3.9 mmol/L (3.5-5.1); Sodium 140 mmol/L (137-145); Total Bilirubin 0.7 mg/dL (0.2-1.3); Total Protein 6.4 g/dL (6.3-8.2); Triglycerides 53 mg/dL (<150)
--- NOTE | 2019-04-11 13:14 | P.HP ---
Psychiatric H&P - . 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 The patient has been admitted to our inpatient psychiatric services after been transferred from [facility] ED. Patient was brought to ED by EMS after she was unresponsive. The patient has been admitted on petition from her mother but patient requested to sign voluntary papers during her psychiatric evaluation. CHIEF COMPLAINT: "I am feeling very sad." HISTORY OF PRESENT ILLNESS: As per ED note: " Patient has long history of heroin abuse. She admits to using IV heroin. She was given Narcan intranasally by her family members for unrespon siveness and apnea. When EMS arrived she was given additional 2 mg of intranasal Narcan. At the time my evaluation she is alert and oriented. She has no physical complaints. She admits to using heroin. Denies suicidal or homicidal ideation. She is brought in by police and has been petitioned by her mother for mental health evaluation." According to petition paper by her mother: "Patient has severe depression, mood swings, crying and violent/argumentative behavior. Suicidal threats/attempts, not acting normal." No Description or explanation of her depression or suicidal attempt. During evaluation today, the patient denies feeling depressed, hopeless or suicidal. She denies any suicidal attempt and explained that she unintentionally overdosed on heroin yesterday because she wanted to "get high". She reports had started on Suboxone one month ago and she is currently maintained on 8 mg strip BID, and she has been sober for more than 3 weeks but she tried to get high yesterday. Patient denies any intention to hurt herself and reported that she wants to live because she wants to be around her girlfriend, her cousins and her dog, and was talking about future gaols to get her own house with her girlfriend and to have children. Patient denies symptoms of depression including depressed mood, sleep or appetite disturbances, lack of motivation, feeling guilty, hopelessness, worthl essness, or suicidal thoughts. Patient explained that her mother petitioned her because she wants to control the patient and she is her legal guardian. Patient reports has ongoing conflict with her mother who wants to keep the patient "locked in" as per the patient. Patient reports history of depression and previous suicide attempt which was in 2006, but denies any current symptoms of depression. She also reports history of mood swings with bouts of severe agitation but she denies any current mood swings, irritable mood, outbursts of anger, or agitated behavior. She denies any current or previous history of manic symptoms including euphoric mood, grandiosity, lack need to sleep due to unusual increased activity, or irrational behavior without being high on drugs. She denies any current or previous symptoms of psychosis including auditory or visual hallucinations, paranoid ideation, and no delusions could be elicited. She denies history of nightmares or flashbacks and he denies any previous psychological trauma. Reports history of anxiety with racing thoughts and feeling tense with sometimes panic attacks. She reports has been taking her psychiatric medications regularly and he denies any interruption taking her medication, and she continued follow-up with [facility]. PAST PSYCHIATRIC HISTORY: Previous diagnoses: Depressive disorder, anxiety disorder, opioid use disorder, sedative hypnotic use disorder Previous psychiatric hospitalizations: Multiple times including this hospital during 2018 and 2018, last time August 2018, discharged on Effexor, Lamictal and Clonidine and diagnosed with MDD, and opioid use disorder. Previous suicide attempts: Reports only one previous suicidal attempt in 2006 by overdose on Tylenol. Outpatient psychiatric treatment: She is currently connected with [facility] for psychiatric treatment and she has been seen by counselor and psychiatrist. He current medications Lamictal 200 mg BID, Trazodone and Clonidine. She reports taking Clonidine to help with anxiety and she stopped taking Effexor because it was not helping her symptoms. Previous medication trials: Reports history of previous medication trials but couldn't tell their names. SUBSTANCE ABUSE HISTORY: Nicotine: About one PPD for more than 10 years. Alcohol: Denies drinking alcohol. Opioid: Started to use heroin 10 years ago and she has been trying to stop for many years. Patient couldn't tell longest time of sobriety but reports recently started on Suboxone treatment and she is receiving 8 mg BID. Cocaine/ other stimulants: Denies use of methamphetamine or cocaine. Cannabis: Reports occasionally smoking marijuana Benzodiazepines: Denies any history of abuse but according to previous records she was diagnosed with sedative-hypnotic use disorder and she reported previously using Xanax from streets. Reports history of previous [facility] treatment including inpatient rehab with last time was one year ago. Social History: Patient was born in [place] and raised up by her parents. Her father left the house. Housing: Currently lives with her mother. Patient never and has no children. Work history: currently not working. Education: Patient reports attaining an educational level of high school. Legal history: history of been arrested for possession of drugs. History of psychological trauma: Denies FAMILY HISTORY: Psychiatric Illness: Mother suffered from depression. Substance abuse: "addiction problems at my mother side of the family and most of them drink alcohol". Completed Suicides: "one of my cousins committed suicide" . Medical History: Denies any history of medical problems MENTAL STATUS EVALUATION: Appearance: Appears younger than stated age, poorly groomed, below average body built, with extensive tattos at both arms. Gait/ posture: Steady gait, normal arm swinging, no abnormal movements, with relaxed posture. Attitude and Behavior: Superficially cooperative, not fully engaged, intermittent eye contact during course of interview. Motor Activity: Increased psychomotor activity. Speech: spontaneous, normal rate, rhythm, and articulation. High volume. Not pressured. Language: Articulating, naming objects and repeat phrases. Mood: "angry" Affect: Restricted. Thought process: Linear, goal-directed. Association: Intact. Thought content: Denies delusions, Denies suicidal thoughts, Denies homicidal thoughts, Denies intentions, or plans. Perception: Denies auditory or visual hallucinations, not internally preoccupied Attention and concentration: Some degree impaired and sometimes goes for moments of sleepiness but responding to calling her name and was answering questions. Orientation: patient is fully oriented to time, person, place, and situation Insight regarding psychiatric condition: Fair Judgment regarding daily activities and social situation: Fair Strengths: Family support. Stable general medical condition. Access to treatment Challenges: Poor compliance with treatment. Poor coping skills Allergies Allergy/AdvReac Type Severity Reaction Status Date / Time No Known Allergies Allergy Verified 04/10/19 21:13 Vital Signs Temp 98.9 F 04/11/19 00:12 Pulse 80 04/11/19 08:25 Resp 18 04/11/19 08:25 BP 109/56 04/11/19 08:25 Pulse Ox 100 12/27/19 20:04 Intake & Output 04/10/19 04/11/19 04/11/19 18:59 06:59 18:59 Weight 68.039 kg Review of Lab results: Laboratory Last Values WBC 4.7 k/uL (3.8-10.6) 04/11/19 08:07 RBC 4.36 m/uL (3.80-5.40) 04/11/19 08:07 Hgb 12.3 gm/dL (11.4-16.0) 04/11/19 08:07 Hct 36.9 % (34.0-46.0) 04/11/19 08:07 MCV 84.6 fL (80.0-100.0) 04/11/19 08:07 MCH 28.2 pg (25.0-35.0) 04/11/19 08:07 MCHC 33.4 g/dL (31.0-37.0) 04/11/19 08:07 RDW 13.4 % (11.5-15.5) 04/11/19 08:07 Plt Count 205 k/uL (150-450) 04/11/19 08:07 Neutrophils % 52 % 04/11/19 08:07 Lymphocytes % 36 % 04/11/19 08:07 Monocytes % 6 % 04/11/19 08:07 Eosinophils % 3 % 04/11/19 08:07 Basophils % 1 % 04/11/19 08:07 Neutrophils # 2.4 k/uL (1.3-7.7) 04/11/19 08:07 Lymphocytes # 1.7 k/uL (1.0-4.8) 04/11/19 08:07 Monocytes # 0.3 k/uL (0-1.0) 04/11/19 08:07 Eosinophils # 0.1 k/uL (0-0.7) 04/11/19 08:07 Basophils # 0.0 k/uL (0-0.2) 04/11/19 08:07 Sodium 140 mmol/L (137-145) 04/11/19 08:07 Potassium 3.9 mmol/L (3.5-5.1) 04/11/19 08:07 Chloride 107 mmol/L (98-107) 04/11/19 08:07 Carbon Dioxide 26 mmol/L (22-30) 04/11/19 08:07 Anion Gap 7 mmol/L 04/11/19 08:07 BUN 10 mg/dL (7-17) 04/11/19 08:07 Creatinine 0.70 mg/dL (0.52-1.04) 04/11/19 08:07 Est GFR (CKD-EPI)AfAm >90 (>60 ml/min/1.73 sqM) 04/11/19 08:07 Est GFR (CKD-EPI)NonAf >90 (>60 ml/min/1.73 sqM) 04/11/19 08:07 Glucose 93 mg/dL (74-99) 04/11/19 08:07 Calcium 9.2 mg/dL (8.4-10.2) 04/11/19 08:07 Total Bilirubin 0.7 mg/dL (0.2-1.3) 04/11/19 08:07 AST 34 U/L (14-36) 04/11/19 08:07 ALT 25 U/L (4-34) 04/11/19 08:07 Alkaline Phosphatase 60 U/L (38-126) 04/11/19 08:07 Total Protein 6.4 g/dL (6.3-8.2) 04/11/19 08:07 Albumin 3.8 g/dL (3.5-5.0) 04/11/19 08:07 Triglycerides 53 mg/dL (<150) 04/11/19 08:07 Cholesterol 120 mg/dL (<200) 04/11/19 08:07 LDL Cholesterol, Calc 61 mg/dL (0-99) 04/11/19 08:07 HDL Cholesterol 48 mg/dL (40-60) 04/11/19 08:07 TSH 0.491 mIU/L (0.465-4.680) 04/11/19 08:07 Assessment: Unspecified mood disorder. Rule out bipolar disorder, unspecified Rule out generalized anxiety disorder. Rule out opioid-induced mood disorder Opioid use disorder severe. History of sedative hypnotic use disorder. TREATMENT PLAN/RECOMMENDATIONS: Medical Decision making: The patient presented to the hospital after she was found unresponsive by her family due to overdose on heroin and she was petitioned by her mother for psychiatric evaluation due to concern about depression and suicidal thoughts. The patient at high risk to hurt herself if she is not in the inpatient setting for further monitoring and treatment. The patient was in agreement with treatment and she signed a voluntary papers. The patient's psychiatric symptoms are not stable and she needs further management of psychiatric medications and further planning for discharge. Therefore, inpati ent level of care is needed. Continue the patient inpatient for safety. Continue the patient under 15 minutes safe check for safety. Patient signed voluntary papers. Continue treatment of opioid use disorder, and potential opioid withdrawal, and continue monitoring for depression and mood symptoms. Psych education regarding her diagnosis, and treatment option. The patient will also be provided with individual therapy, group therapy, substance abuse counseling, gain insight, and coping skills. Consider medical consultation if any acute medical issue arise. Medications: Continue Lamictal 200 mg twice a day for mood stabilization. Continue trazodone 150 mg at bedtime for depression/anxiety and to help with insomnia. Continue clonidine 0.1 mg twice daily and 0.2 mg at bedtime help with anxiety symptoms and for opioid withdrawal symptoms-hold the medication if the blood pressure is lower than 90/60. Labs: Obtain UDS. The patient will be assessed on daily basis for his depression, suicidal ideation, and will be discharged back to his outpatient mental health provider upon stabilization. EXPECTED LENGTH OF STAY: 5-7 days.
[2019-04-11 20:11] LABS: Hemoglobin A1C 4.9 % (4.0-6.0)
[2019-04-12] MEDS: lamoTRIgine 100 MG TAB PO SCH ×2 (10:41→20:09)
[2019-04-12] MEDS: cloNIDine HCL 0.1 MG TAB PO SCH ×3 (10:49→20:09)
--- NOTE | 2019-04-12 12:30 | P.HPIM ---
History of Present Illness H&P Date: 04/12/19 Chief Complaint: Psychosis/overdose Positional female long-standing history of IV drug abuse and multiple heroin overdoses. 04/10/2019 admitted to the hospital heroin overdose Narcan intranasally given by family members due to unresponsiveness and apnea. Presentation in the emergency room she was alert, patient signed to place patient into mental health unit Review of Systems Constitutional: Reports as per HPI Ears, nose, mouth and throat: Reports as per HPI Cardiovascular: Reports as per HPI Respiratory: Reports as per HPI Gastrointestinal: Reports as per HPI Genitourinary: Reports as per HPI Menstruation: Reports as per HPI Musculoskeletal: Reports as per HPI Integumentary: Reports as per HPI Neurological: Reports as per HPI Psychiatric: Reports anhedonia (Heroin overdose), Reports confusion, Reports disorientation Past Medical History Past Medical History: No Reported History Additional Past Medical History / Comment(s): kidney failure 2011 with dialysis, on life support at [facility] 07/13 after drug overdose, concusion in 2002 from fall while skateboarding, short-term memory loss History of Any Multi-Drug Resistant Organisms: None Reported Additional Past Surgical History / Comment(s): plastic surgery on lip Past Anesthesia/Blood Transfusion Reactions: No Reported Reaction Smoking Status: Current every day smoker - Past Family History Mother Additional Family Medical History / Comment(s): depression, multiple people with suicide attempts Father Family Medical History: Hypertension Medications and Allergies Home Medications Medication Instructions Recorded Confirmed Type Buprenorphine HCl/Naloxone HCl 1 film SL BID 04/10/19 04/10/19 History [Suboxone 8 mg-2 mg Sl Film] cloNIDine HCL [Catapres] 0.1 mg PO BID@0800,1200 04/10/19 04/10/19 History cloNIDine HCL [Catapres] 0.2 mg PO HS 04/10/19 04/10/19 History lamoTRIgine [LaMICtal] 200 mg PO BID 04/10/19 04/10/19 History traZODone HCL 100 mg PO HS 04/10/19 04/10/19 History Allergies Allergy/AdvReac Type Severity Reaction Status Date / Time No Known Allergies Allergy Verified 04/10/19 21:13 Physical Exam Osteopathic Statement: *. No significant issues noted on an osteopathic structural exam other than those noted in the History and Physical/Consult. Vitals: Vital Signs Temp Pulse Resp BP 04/12/19 12:14 78 16 106/58 04/12/19 10:40 98.5 F 74 16 99/54 04/12/19 06:49 60 16 88/40 General: [Patient awake, alert and oriented times 3. Patient in no acute distress.] HEENT: [PERRL. EOMI. No pharyngeal erythema or exudate.] Neck: [No adenopathy.] Cardiac: [Heart regular in rate and rhythm. No S3. No S4. No clicks, rubs. No murmur.] Lungs: [Clear to auscultation bilaterally.] Abdomen: [No mass. No organomegaly. Bowel sounds presnt and normoactive in all 4 quadrants.] Extremes: [No edema no cyanosis no claudication normal pulses] : [Normal female genitalia] Musculoskeletal: [No joint erythema, edema or tenderness.] Skin: [No rash.] Neurologic: [No lateralizing deficits. CN II - XII grossly intact.] Lymphatic: [No adenopathy.] Results CBC & Chem 7: 04/11/19 08:07 04/11/19 08:07 Assessment and Plan (1) Drug overdose Current Visit: Yes Status: Acute Code(s): T50.901A - POISONING BY UNSP DRUG/MEDS/BIOL SUBST, ACCIDENTAL, INIT SNOMED Code(s): 97329993 (2) Altered mental status Current Visit: No Status: Acute Code(s): R41.82 - ALTERED MENTAL STATUS, UNSPECIFIED SNOMED Code(s): 516939507 (3) Heroin overdose Current Visit: No Status: Acute Priority: Low Code(s): T40.1X1A - POISONING BY HEROIN, ACCIDENTAL (UNINTENTIONAL), INIT ENCNTR SNOMED Code(s): 924841284 Plan: Patient was medically cleared for mental health unit, depressed Questionable hypertension we'll follow blood pressure Time with Patient: Greater than 30
--- NOTE | 2019-04-12 12:31 | P.PN ---
Progress Note - Text Progress Note Date: 04/12/19 Subjective: The patient has been seen today as follow-up, chart reviewed, case discussed with the treatment team. Patient slept about 6 hours last night. Patient has not been going to groups and other unit activities. Patient reports fair appetite. Patient continued to share that feeling frustrated about being hospitalized and she doesn't agree with her mother petition. Patient denies feeling depressed, hopeless, or suicidal. She denies any auditory or visual hallucinations, paranoid ideation, no delusions could be elicited. She denies mood swings, irritability, or agitation. She reports feeling very sad and frustrated because her mother petitioned her and she repeated that she has conflicts with her mother who is her legal guardian. The patient is compliant with her medications and denies any adverse reactions. No manic symptoms been reported or noticed, and no reports of behavioral problems. Objective: Vitals has been reviewed. Mental status examination; Appearance: Appears younger than stated age, fairly groomed, below average body built, with extensive tattos at both arms. Gait/ posture: Steady gait, normal arm swinging, no abnormal movements, with relaxed posture. Attitude and Behavior: Superficially cooperative, not fully engaged, intermittent eye contact during course of interview. Motor Activity: Increased psychomotor activity. Speech: spontaneous, normal rate, rhythm, and articulation. High volume. Not pressured. Language: Articulating, naming objects and repeat phrases. Mood: "angry" Affect: Restricted. Thought process: Linear, goal-directed. Association: Intact. Thought content: Denies delusions, Denies suicidal thoughts, Denies homicidal thoughts, Denies intentions, or plans. Perception: Denies auditory or visual hallucinations, not internally preoccupied Attention and concentration: Some degree impaired and sometimes goes for moments of sleepiness but responding to calling her name and was answering questions. Orientation: patient is fully oriented to time, person, place, and situation Insight regarding psychiatric condition: Fair Judgment regarding daily activities and social situation: Fair Assessment: Unspecified mood disorder. Rule out bipolar disorder, unspecified Rule out generalized anxiety disorder. Rule out opioid-induced mood disorder Opioid use disorder severe. History of sedative hypnotic use disorder. Plan: Continue the patient inpatient for safety. Obtain collateral information from mother regarding petition paper. Continue the patient under 15 minutes safe check for safety. Patient signed voluntary papers. Continue treatment of opioid use disorder, and potential opioid withdrawal, and continue monitoring for depression and mood symptoms. Psych education regarding her diagnosis, and treatment option. The patient will also be provided with individual therapy, group therapy, substance abuse counseling, gain insight, and coping skills. Consider medical consultation if any acute medical issue arise. Medications: Continue Lamictal 200 mg twice a day for mood stabilization. Continue trazodone 150 mg at bedtime for depression/anxiety and to help with insomnia. Continue clonidine 0.1 mg twice daily and 0.2 mg at bedtime help with anxiety symptoms and for opioid withdrawal symptoms-hold the medication if the blood pressure is lower than 90/60. Labs: Obtain UDS. Ordered yesterday, No results are available EXPECTED LENGTH OF STAY: 2-3 days.
[2019-04-12] MEDS: traZODone HCL 100 MG TAB PO SCH (20:09)
[2019-04-13] MEDS: lamoTRIgine 100 MG TAB PO SCH ×2 (09:30→21:13)
[2019-04-13] MEDS: cloNIDine HCL 0.1 MG TAB PO SCH ×3 (09:31→21:13)
--- NOTE | 2019-04-13 11:58 | P.PN ---
Subjective Progress Note Date: 04/13/19 Subjective: The patient has been seen today as follow-up, chart reviewed, case discussed with the treatment team. The patient reports doing okay but stated that she is not happy to be on the unit. The patient does not think that she needs to be here. She reports no depression or anxiety at this time. The patient is focused on getting herself out of the hospital. The patient reports fair sleep and appetite. She denies any crying spells or panic attacks. She attends and participates in milieu therapy. The patient admitted to [facility] opiate abuse and dependence and is reports that she has been in the Suboxone program. Patient denies feeling depressed, hopeless, or suicidal. She denies any auditory or visual hallucinations, paranoid ideation, no delusions could be elicited. She reports feeling very sad and frustrated because her mother petitioned her and she repeated that she has conflicts with her mother who is her legal guardian. The patient is compliant with her medications and denies any adverse reactions. No manic symptoms been reported or noticed, and no reports of behavioral problems. Objective - Vital Signs Vital signs: Vital Signs Temp 97.9 F 04/13/19 06:48 Pulse 79 04/13/19 09:32 Resp 20 04/13/19 09:32 BP 102/58 04/13/19 09:32 Pulse Ox 100 04/10/19 20:04 Intake & Output 04/12/19 04/13/19 04/13/19 18:59 06:59 18:59 Weight 64.8 kg - Exam Objective: Vitals has been reviewed. Mental status examination; Appearance: Appears younger than stated age, fairly groomed, below average body built, with extensive tattos at both arms. Gait/ posture: Steady gait, normal arm swinging, no abnormal movements, with relaxed posture. Attitude and Behavior: Superficially cooperative, not fully engaged, intermittent eye contact during course of interview. Motor Activity: Some psychomotor activity. Speech: spontaneous, normal rate, rhythm, and articulation. High volume. Not pressured. Language: Articulating, naming objects and repeat phrases. Mood: "A little depressed" Affect: Restricted. Thought process: Linear, goal-directed. Association: Intact. Thought content: Denies delusions, Denies suicidal thoughts, Denies homicidal thoughts, Denies intentions, or plans. Perception: Denies auditory or visual hallucinations, not internally preoccupied Attention and concentration: Some degree impaired and sometimes goes for moments of sleepiness but responding to calling her name and was answering questions. Orientation: patient is fully oriented to time, person, place, and situation Insight regarding psychiatric condition: Fair Judgment regarding daily activities and social situation: Fair - Labs CBC & Chem 7: 04/11/19 08:07 04/11/19 08:07 Assessment and Plan Assessment: Assessment: Unspecified mood disorder. Rule out bipolar disorder, unspecified Rule out generalized anxiety disorder. Rule out opioid-induced mood disorder Opioid use disorder severe. History of sedative hypnotic use disorder. Plan: Plan: Continue the patient inpatient for safety. 1:1 support and psychotherapy. Continue the patient under 15 minutes safe check for safety. Check UDS. Discussed Vivitrol. Continue treatment of opioid use disorder, and potential opioid withdrawal, and continue monitoring for depression and mood symptoms. Psych education regarding her diagnosis, and treatment option. The patient will also be provided with individual therapy, group therapy, substance abuse counseling, gain insight, and coping skills. Consider medical consultation if any acute medical issue arise.
[2019-04-13] MEDS: traZODone HCL 100 MG TAB PO SCH (21:13)
[2019-04-14] MEDS: ACETAMINOPHEN TAB 325 MG TAB PO PRN ×2 (03:40→21:55)
[2019-04-14] MEDS: cloNIDine HCL 0.1 MG TAB PO SCH ×3 (08:05→21:55)
[2019-04-14] MEDS: lamoTRIgine 100 MG TAB PO SCH ×2 (08:05→21:55)
[2019-04-14] MEDS: OLANZapine ODT 5 MG TAB PO PRN ×2 (09:58→21:54)
--- NOTE | 2019-04-14 11:42 | P.PN ---
Subjective Progress Note Date: 04/14/19 Subjective: The patient has been seen today as follow-up, chart reviewed, case discussed with the treatment team. The patient reports doing okay but remain focused on getting discharged. The patient reports fair sleep and appetite. She denies any crying spells or panic attacks. Patient reports her mood has been fine except for being in the hospital. The patient denies any auditory or visual hallucinations. She denies any active suicidal homicidal or paranoid ideations at this time. Her speech was goal directed and logical but focused on getting discharged. The patient has been active and visible on the unit and attends milieu therapy. The patient denies any side effects on the medications and has been compliant with treatment. Objective - Vital Signs Vital signs: Vital Signs Temp 97.0 F L 04/14/19 02:44 Pulse 89 04/14/19 08:11 Resp 20 04/13/19 21:14 BP 111/85 04/14/19 08:11 Pulse Ox 100 04/10/19 20:04 - Exam Objective: Vitals has been reviewed. Mental status examination; Appearance: Appears younger than stated age, fairly groomed, below average body built, with extensive tattos at both arms. Gait/ posture: Steady gait, normal arm swinging, no abnormal movements, with relaxed posture. Attitude and Behavior: Superficially cooperative, not fully engaged, intermittent eye contact during course of interview. Motor Activity: Some psychomotor activity. Speech: spontaneous, normal rate, rhythm, and articulation. High volume. Not pressured. Language: Articulating, naming objects and repeat phrases. Mood: "good" Affect: Restricted. Thought process: Linear, goal-directed. Association: Intact. Thought content: Denies delusions, Denies suicidal thoughts, Denies homicidal thoughts, Denies intentions, or plans. Perception: Denies auditory or visual hallucinations, not internally preoccupied Attention and concentration: Some degree impaired and sometimes goes for moments of sleepiness but responding to calling her name and was answering questions. Orientation: patient is fully oriented to time, person, place, and situation Insight regarding psychiatric condition: Fair Judgment regarding daily activities and social situation: Fair - Labs CBC & Chem 7: 04/11/19 08:07 04/11/19 08:07 Assessment and Plan Assessment: Assessment: Unspecified mood disorder. Rule out bipolar disorder, unspecified Rule out generalized anxiety disorder. Rule out opioid-induced mood disorder Opioid use disorder severe. History of sedative hypnotic use disorder. Plan: Plan: Continue the patient inpatient for safety. 1:1 support and psychotherapy. Continue the patient under 15 minutes safe check for safety. Check UDS. Discussed Vivitrol. Continue treatment of opioid use disorder, and potential opioid withdrawal, and continue monitoring for depression and mood symptoms. Psych education regarding her diagnosis, and treatment option. The patient will also be provided with individual therapy, group therapy, substance abuse counseling, gain insight, and coping skills. Consider medical consultation if any acute medical issue arise.
[2019-04-14] MEDS: traZODone HCL 100 MG TAB PO SCH (21:54)
[2019-04-15] MEDS: lamoTRIgine 100 MG TAB PO SCH ×2 (09:01→20:48)
[2019-04-15] MEDS: cloNIDine HCL 0.1 MG TAB PO SCH ×3 (09:01→21:40)
[2019-04-15 10:53] LABS: Appearance,Urine Clear (Clear); Bilirubin,Urine Negative (Negative); Blood,Urine Moderate (Negative); Color,Urine Yellow; Glucose,Urine (UA) Negative (Negative); Ketones,Urine Negative (Negative); Leukocyte Esterase,Urine Negative (Negative); Mucus,Urine Few /hpf; Nitrite,Urine Negative (Negative); PH, Urine 6.5 (5.0-8.0); Protein,Urine Trace (Negative); RBC,Urine 98 /hpf (0-5); Specific Gravity,Urine 1.028 (1.001-1.035); WBC,Urine 1 /hpf (0-5)
[2019-04-15 11:00] LABS: Amphetamine Screen,Urine Not Detected (NotDetected); Barbiturate Screen,Urine Not Detected (NotDetected); Benzodiazepines Screen,Urine Not Detected (NotDetected); Cocaine Screen,Urine Not Detected (NotDetected); Methadone Screen, Urine Not Detected (NotDetected); Opiate Screen,Urine Not Detected (NotDetected); Oxycodone Screen, Urine Not Detected (NotDetected); Phencyclidine Screen,Urine Detected (NotDetected); Tricyclic Antidepressant,Urine Not Detected (NotDetected); Urn Cannabinoid Scrn Detected (NotDetected)
--- NOTE | 2019-04-15 15:11 | P.PN ---
Subjective Progress Note Date: 04/15/19 Subjective: The patient has been seen today as follow-up, chart reviewed, case discussed with the treatment team. The patient reports doing okay but remain focused on getting discharged. The patient reports fair sleep and appetite. She denies any crying spells or panic attacks. Patient reports her mood has been and she is anxious to get discharged. The patient denies any auditory or visual hallucinations. She denies any active suicidal, homicidal or paranoid ideations at this time. Her speech was goal directed and logical but focused on getting discharged. The patient has been active and visible on the unit and attends milieu therapy. The patient denies any side effects on the medications and has been compliant with treatment. Objective - Vital Signs Vital signs: Vital Signs Temp 98.9 F 04/15/19 06:22 Pulse 85 04/15/19 12:21 Resp 16 04/15/19 06:22 BP 117/67 04/15/19 12:21 Pulse Ox 100 04/10/19 20:04 - Exam Objective: Vitals has been reviewed. Mental status examination; Appearance: Appears younger than stated age, fairly groomed, below average body built, with extensive tattos at both arms. Gait/ posture: Steady gait, normal arm swinging, no abnormal movements, with relaxed posture. Attitude and Behavior: Superficially cooperative, not fully engaged, intermittent eye contact during course of interview. Motor Activity: Some psychomotor activity. Speech: spontaneous, normal rate, rhythm, and articulation. High volume. Not pressured. Language: Articulating, naming objects and repeat phrases. Mood: "good" Affect: Restricted. Thought process: Linear, goal-directed. Association: Intact. Thought content: Denies delusions, Denies suicidal thoughts, Denies homicidal thoughts, Denies intentions, or plans. Perception: Denies auditory or visual hallucinations, not internally preoccupied Attention and concentration: Some degree impaired and sometimes goes for moments of sleepiness but responding to calling her name and was answering questions. Orientation: patient is fully oriented to time, person, place, and situation Insight regarding psychiatric condition: Fair Judgment regarding daily activities and social situation: Fair - Labs CBC & Chem 7: 04/11/19 08:07 04/11/19 08:07 Labs: Abnormal Lab Results - Last 24 Hours (Table) 04/15/19 Range/Units 10:30 Urine Protein Trace H (Negative) Urine Blood Moderate H (Negative) Urine RBC 98 H (0-5) /hpf Urine Mucus Few H (None) /hpf Ur Phencyclidine Scrn Detected H (NotDetected) U Marijuana (THC) Screen Detected H (NotDetected) Assessment and Plan Assessment: Assessment: Unspecified mood disorder. Rule out bipolar disorder, unspecified Rule out generalized anxiety disorder. Rule out opioid-induced mood disorder Opioid use disorder severe. History of sedative hypnotic use disorder. Plan: Plan: Continue the patient inpatient for safety. 1:1 support and psychotherapy. Continue the patient under 15 minutes safe check for safety. UDS results reviewed.. Discussed Vivitrol. Start Revia 50 mg PO qd now. Continue treatment of opioid use disorder, and potential opioid withdrawal, and continue monitoring for depression and mood symptoms. Psych education regarding her diagnosis, and treatment option. The patient is reluctantly agreeable to go to [facility]. The patient will also be provided with individual therapy, group therapy, substance abuse counseling, gain insight, and coping skills. Consider medical consultation if any acute medical issue arise.
[2019-04-15] MEDS: NALTREXONE HCL 50 MG TAB PO SCH (16:13)
[2019-04-15] MEDS: traZODone HCL 100 MG TAB PO SCH (21:40)
[2019-04-15] MEDS: ACETAMINOPHEN TAB 325 MG TAB PO PRN (21:43)
[2019-04-16] MEDS: ACETAMINOPHEN TAB 325 MG TAB PO PRN (05:13)
[2019-04-16] MEDS: cloNIDine HCL 0.1 MG TAB PO SCH ×3 (08:23→20:50)
[2019-04-16] MEDS: lamoTRIgine 100 MG TAB PO SCH ×2 (08:24→20:50)
[2019-04-16] MEDS: NALTREXONE HCL 50 MG TAB PO SCH ×2 (08:24→14:33)
--- NOTE | 2019-04-16 14:34 | P.PN ---
Subjective Progress Note Date: 04/16/19 Subjective: The patient has been seen today as follow-up, chart reviewed, case discussed with the treatment team. The patient reports doing all right and denies any depression or anxiety at this time. The patient reports fair sleep and appetite. She denies any crying spells or panic attacks. The patient reports she wants to go home. The patient continues to lack of insight into her subs tance abuse issues. She tends to minimize her psychiatric illness and substance abuse issues. The patient denies any urges or cravings to use. She denies any auditory or visual hallucinations. She denies any suicidal or homicidal ideations at this time. The patient refused to her review yesterday and today and claims that it would make her sick. Objective - Vital Signs Vital signs: Vital Signs Temp 97.8 F 04/16/19 01:26 Pulse 75 04/16/19 12:40 Resp 20 04/16/19 12:40 BP 122/78 04/16/19 12:40 Pulse Ox 100 04/10/19 20:04 - Exam Objective: Vitals has been reviewed. Mental status examination; Appearance: Appears younger than stated age, fairly groomed, below average body built, with extensive tattos at both arms. Gait/ posture: Steady gait, normal arm swinging, no abnormal movements, with relaxed posture. Attitude and Behavior: Superficially cooperative, not fully engaged, intermittent eye contact during course of interview. Motor Activity: Some psychomotor activity. Speech: spontaneous, normal rate, rhythm, and articulation. High volume. Not pressured. Language: Articulating, naming objects and repeat phrases. Mood: "good" Affect: Restricted. Thought process: Linear, goal-directed. Association: Intact. Thought content: Denies delusions, Denies suicidal thoughts, Denies homicidal thoughts, Denies intentions, or plans. Perception: Denies auditory or visual hallucinations, not internally preoccupied Attention and concentration: Some degree impaired and sometimes goes for moments of sleepiness but responding to calling her name and was answering questions. Orientation: patient is fully oriented to time, person, place, and situation Insight regarding psychiatric condition: Fair Judgment regarding daily activities and social situation: Fair - Labs CBC & Chem 7: 04/11/19 08:07 04/11/19 08:07 Assessment and Plan Assessment: Assessment: Unspecified mood disorder. Rule out bipolar disorder, unspecified Rule out generalized anxiety disorder. Rule out opioid-induced mood disorder Opioid use disorder severe. History of sedative hypnotic use disorder. Plan: Plan: Continue the patient inpatient for safety. 1:1 support and psychotherapy. Continue the patient under 15 minutes safe check for safety. Discussed Vivitrol. Encourage compliance. Discuss possible side effects on all medications including ReVia. The patient was agreeable to try ReVia. Start Revia 50 mg PO qd now. Continue treatment of opioid use disorder, and potential opioid withdrawal, and continue monitoring for depression and mood symptoms. Psych education regarding her diagnosis, and treatment option. The patient is reluctantly agreeable to go to [facility]. The patient will also be provided with individual therapy, group therapy, substance abuse counseling, gain insight, and coping skills. Consider medical consultation if any acute medical issue arise.
[2019-04-16 21:05] VITALS: RESP 16
[2019-04-16] MEDS: traZODone HCL 100 MG TAB PO SCH (23:01)
[2019-04-17] MEDS: ACETAMINOPHEN TAB 325 MG TAB PO PRN (02:34)
[2019-04-17 02:40] VITALS: TEMP 96.9
[2019-04-17] MEDS: cloNIDine HCL 0.1 MG TAB PO SCH ×2 (09:03→11:58)
[2019-04-17] MEDS: lamoTRIgine 100 MG TAB PO SCH (09:03)
[2019-04-17] MEDS: NALTREXONE HCL 50 MG TAB PO SCH (10:30)
[2019-04-17 10:41] VITALS: BMI 26.1
--- NOTE | 2019-04-17 11:40 | P.PN ---
Subjective Progress Note Date: 04/17/19 Subjective: The patient has been seen today as follow-up, chart reviewed, case discussed with the treatment team. The patient reports doing well and denies any new problems at this time. The patient reports fair sleep and appetite. She denies any crying spells or panic attacks. The patient denies any auditory or visual hallucinations. Her mood was upbeat and affect was congruent. The patient denies any auditory or visual hallucinations. She denies any suicidal homicidal or paranoid ideations. The patient received ReVia yesterday and did not have any side effects or problems. Objective - Vital Signs Vital signs: Vital Signs Temp 96.9 F L 04/17/19 02:39 Pulse 88 04/17/19 02:39 Resp 16 04/17/19 02:39 BP 127/84 04/17/19 02:39 Pulse Ox 98 04/17/19 02:39 Intake & Output 04/16/19 04/17/19 04/17/19 18:59 06:59 18:59 Weight 64.8 kg - Exam Objective: Vitals has been reviewed. Mental status examination; Appearance: Appears younger than stated age, fairly groomed, below average body built, with extensive tattos at both arms. Gait/ posture: Steady gait, normal arm swinging, no abnormal movements, with relaxed posture. Attitude and Behavior: Superficially cooperative, not fully engaged, intermittent eye contact during course of interview. Motor Activity: Some psychomotor activity. Speech: spontaneous, normal rate, rhythm, and articulation. High volume. Not pressured. Language: Articulating, naming objects and repeat phrases. Mood: "good" Affect: Restricted. Thought process: Linear, goal-directed. Association: Intact. Thought content: Denies delusions, Denies suicidal thoughts, Denies homicidal thoughts, Denies intentions, or plans. Perception: Denies auditory or visual hallucinations, not internally preoccupied Attention and concentration: Some degree impaired and sometimes goes for moments of sleepiness but responding to calling her name and was answering questions. Orientation: patient is fully oriented to time, person, place, and situation Insight regarding psychiatric condition: Fair Judgment regarding daily activities and social situation: Fair - Labs CBC & Chem 7: 04/11/19 08:07 04/11/19 08:07 Assessment and Plan Assessment: Assessment: Unspecified mood disorder. Rule out bipolar disorder, unspecified Rule out generalized anxiety disorder. Rule out opioid-induced mood disorder Opioid use disorder severe. History of sedative hypnotic use disorder. Plan: Plan: Discharge home today. 1:1 support and psychotherapy. The patient will receive Vivitrol before she is discharged today. Encourage compliance. Discuss possible side effects on all medications including ReVia. The patient was agreeable to try ReVia. Continue treatment of opioid use disorder, and potential opioid withdrawal, and continue monitoring for depression and mood symptoms. Psych education regarding her diagnosis, and treatment option. The patient is reluctantly agreeable to go to rehab. The patient will also be provided with individual therapy, group therapy, substa nce abuse counseling, gain insight, and coping skills. Follow-up at [facility] diagnosis program.
--- NOTE | 2019-04-17 11:53 | P.DS ---
Providers Date of admission: 04/10/19 22:49 Attending physician: Vilma Singleton MD Consults: 04/11/19 03:22 Consult Physician Routine Consulting Provider: Kody Nassar Consult Reason/Comments: H & P Do you want consulting provider notified?: Yes, Notify in am Primary care physician: Stated None Hospital Course: IDENTIFYING Data: Cammie Anderson was a 28-year-old single black female who was living with her mother, unemployed on SSD, has psychiatric history of Depression, anxiety disorder, opioid use disorder and sedative-hypnotic use disorder, and denies history of medical problems. The patient has been admitted to our inpatient psychiatric services after been transferred from [facility] ED. Patient was brought to ED by EMS after she was unresponsive. The patient has been admitted on petition from her mother but patient requested to sign voluntary papers during her psychiatric evaluation. CHIEF COMPLAINT: "I am feeling very sad." HISTORY OF PRESENT ILLNESS: As per ED note: Patient has long history of heroin abuse. She admits to using IV heroin. She was given Narcan intranasally by her family members for unresponsiveness and apnea. When EMS arrived she was given additional 2 mg of intranasal Narcan. At the time my evaluation she is alert and oriented. She has no physical complaints. She admits to using heroin. Denies suicidal or homicidal ideation. She is brought in by police and has been petitioned by her mother for mental health evaluation." According to petition paper by her mother: "Patient has severe depression, mood swings, crying and violent/argumentative behavior. Suicidal threats/attempts, not acting normal." No Description or explanation of her depression or suicidal attempt. During evaluation today, the patient denies feeling depressed, hopeless or suicidal. She denies any suicidal attempt and explained that she unintentionally overdosed on heroin yesterday because she wanted to "get high". She reports had started on Suboxone one month ago and she is currently maintained on 8 mg strip BID, and she has been sober for more than 3 weeks but she tried to get high yesterday. Patient denies any intention to hurt herself and reported that she wants to live because she wants to be around her girlfriend, her cousins and her dog, and was talking about future gaols to get her own house with her girlfriend and to have children. Patient denies symptoms of depression including depressed mood, sleep or appetite disturbances, lack of motivation, feeling guilty, hopelessness, worthlessness, or suicidal thoughts. Patient explained that her mother petitioned her because she wants to control the patient and she is her legal guardian. Patient reports has ongoing conflict with her mother who wants to keep the patient "locked in" as per the patient. Patient reports history of depression and previous suicide attempt which was in 2006, but denies any current symptoms of depression. She also reports history of mood swings with bouts of severe agitation but she denies any current mood swings, irritable mood, outbursts of anger, or agitated behavior. She denies any current or previous history of manic symptoms including euphoric mood, grandiosity, lack need to sleep due to unusual increased activity, or irrational behavior without being high on drugs. She denies any current or previous symptoms of psychosis including auditory or visual hallucinations, paranoid ideation, and no delusions could be elicited. She denies history of nightmares or flashbacks and he denies any previous psychological trauma. Reports history of anxiety with racing thoughts and feeling tense with sometimes panic attacks. She reports has been taking her psychiatric medications regularly and he denies any interruption taking her medication, and she continued follow-up with [facility]. PAST PSYCHIATRIC HISTORY: Previous diagnoses: Depressive disorder, anxiety disorder, opioid use disorder, sedative hypnotic use disorder Previous psychiatric hospitalizations: Multiple times including this hospital during 2018 and 2019, last time August 2018, discharged on Effexor, Lamictal and Clonidine and diagnosed with MDD, and opioid use disorder. Previous suicide attempts: Reports only one previous suicidal attempt in 2005 by overdose on Tylenol. Outpatient psychiatric treatment: She is currently connected with [facility] for psychiatric treatment and she has been seen by counselor and psychiatrist. He current medications Lamictal 200 mg BID, Trazodone and Clonidine. She reports taking Clonidine to help with anxiety and she stopped taking Effexor because it was not helping her symptoms. Previous medication trials: Reports history of previous medication trials but couldn't tell their names. SUBSTANCE ABUSE HISTORY: Nicotine: About one PPD for more than 10 years. Alcohol: Denies drinking alcohol. Opioid: Started to use heroin 10 years ago and she has been trying to stop for many years. Patient couldn't tell longest time of sobriety but reports recently started on Suboxone treatment and she is receiving 8 mg BID. Cocaine/ other stimulants: Denies use of methamphetamine or cocaine. Cannabis: Reports occasionally smoking marijuana Benzodiazepines: Denies any history of abuse but according to previous records she was diagnosed with sedative-hypnotic use disorder and she reported previously using Xanax from streets. Reports history of previous [facility] treatment including inpatient rehab with last time was one year ago. Social History: Patient was born in [place] and raised up by her parents. Her father left the house. Housing: Currently lives with her mother. Patient never and has no children. Work history: currently not working. Education: Patient reports attaining an educational level of high school. Legal history: history of been arrested for possession of drugs. History of psychological trauma: Denies FAMILY HISTORY: Psychiatric Illness: Mother suffered from depression. Substance abuse: "addiction problems at my mother side of the family and most of them drink alcohol". Completed Suicides: "one of my cousins committed suicide" . Medical History: Denies any history of medical problems MENTAL STATUS EVALUATION: Appearance: Appears younger than stated age, poorly groomed, below average body built, with extensive tattos at both arms. Gait/ posture: Steady gait, normal arm swinging, no abnormal movements, with relaxed posture. Attitude and Behavior: Superficially cooperative, not fully engaged, intermittent eye contact during course of interview. Motor Activity: Increased psychomotor activity. Speech: spontaneous, normal rate, rhythm, and articulation. High volume. Not pressured. Language: Articulating, naming objects and repeat phrases. Mood: "angry" Affect: Restricted. Thought process: Linear, goal-directed. Association: Intact. Thought content: Denies delusions, Denies suicidal thoughts, Denies homicidal thoughts, Denies intentions, or plans. Perception: Denies auditory or visual hallucinations, not internally preoccupied Attention and concentration: Some degree impaired and sometimes goes for moments of sleepiness but responding to calling her name and was answering questions. Orientation: patient is fully oriented to time, person, place, and situation Insight regarding psychiatric condition: Fair Judgment regarding daily activities and social situation: Fair The patient was cooperative with most of the treatment on the unit. She verbalized feeling angry and upset about being in the hospital. She showed lack of insight into her psychiatric and substance abuse issues. The patient was cooperative and pleasant during the interviews. The patient reported mood was good except for that she was not happy to be on the unit. Patient participated actively in treatment planning and discharge planning. The patient was very reluctant to discuss her substance abuse issues. The patient was initially refusing any substance abuse rehab but later agreed on outpatient treatment. The patient was monitored closely on her medications and was continued on Lamictal 20 mg by mouth twice a day, trazodone 150 mg by mouth daily at bedtime, clonidine 0.1 mg twice a day and 0.2 mg at bedtime. After discussion on her substance abuse the patient was ordered ReVia of 50 mg stat. The patient refused ReVia the first time claiming that it would make her sick. Urine drug screen was obtained and showed no opiates. The patient was counseled and ReVia was ordered again. The patient did not have any side effects on the medication. [facility] was contacted regarding the Vivitrol. The patient was given Vivitrol on the day of discharge. The patient was monitored closely for any possible rapid withdrawal symptoms. The patient was doing okay and denied any problems. The patient's condition was stable and the patient was discharged home after a family meeting with her mother. The patient was to follow-up at [facility] diagnosis program. Plan - Discharge Summary Discharge Rx Participant: No New Discharge Prescriptions: New lamoTRIgine [LaMICtal] 200 mg PO BID #30 tab Continue traZODone HCL 100 mg PO HS #30 tab Discontinued lamoTRIgine [LaMICtal] 200 mg PO BID Buprenorphine HCl/Naloxone HCl [Suboxone 8 mg-2 mg Sl Film] 1 film SL BID cloNIDine HCL [Catapres] 0.2 mg PO HS cloNIDine HCL [Catapres] 0.1 mg PO BID@0800,1200 Discharge Medication List lamoTRIgine [LaMICtal] 200 mg PO BID #30 tab 04/16/19 [Rx] traZODone HCL 100 mg PO HS #30 tab 04/16/19 [Rx] Follow up Appointment(s)/Referral(s): None,Stated [Primary Care Provider] - 1-2 days Activity/Diet/Wound Care/Special Instructions: Activity and diet as tolerated. Avoid the use of street drugs and alcohol. Take all medications as prescribed. When you are in need of refills on your medications please contact your medical provider and/or outpatient psychiatrist to have this done. Please go to scheduled outpatient appointment for aftercare treatment. If symptoms return or become worse, call the crisis line at and/or go to the nearest emergency room for evaluation.
[2019-04-17 11:59] VITALS: BP 107/72; PULSE 97
[2019-04-17] MEDS ORDERED: VIVITROL IM ONE (12:00)
== END 2019-04-17 16:15 | disposition home or self-care (01) | DRG 918 ==
LOC: EC 19:59 → 3MHU 22:49
PROVIDERS: ADMIT Psychiatry & Neurology Psychiatry; ATTEND Psychiatry & Neurology Psychiatry
DX: T40.1X1A Poisoning by heroin, accidental (unintentional), initial encounter (principal); F11.20 Opioid dependence, uncomplicated; F12.90 Cannabis use, unspecified, uncomplicated; F31.9 Bipolar disorder, unspecified; F41.0 Panic disorder [episodic paroxysmal anxiety]; F17.210 Nicotine dependence, cigarettes, uncomplicated; Z71.6 Tobacco abuse counseling; Z79.899 Other long term (current) drug therapy; Z91.5 Personal history of self-harm; Z87.448 Personal history of other diseases of urinary system; Z87.820 Personal history of traumatic brain injury; Z98.890 Other specified postprocedural states; Z81.8 Family history of other mental and behavioral disorders; Z82.49 Family history of ischemic heart disease and other diseases of the circulatory system
CPT/HCPCS: 80053; 80061; 80306; 81001; 81025; 82075; 83036; 84443; 85025; 99285

== ENCOUNTER 2020-12-01 21:51 | Emergency (ER) | payer OTHER ==
--- NOTE | 2020-12-01 22:16 | ED ---
Overdose HPI - General Chief Complaint: Overdose Stated Complaint: Overdose Time Seen by Provider: 12/01/20 22:05 Source: patient, RN notes reviewed, old records reviewed Mode of arrival: EMS Limitations: no limitations - History of Present Illness Initial Comments: This is a 22-year-old female DF for evaluation of heroin overdose. She did have bystander she did found her unresponsive and called EMS. Patient was given Narcan by both PD and EMS, is awake alert. Patient does have history of drug abuse and heroin abuse. She is not currently homicidal or suicidal took no other drugs or alcohol today MD Complaint: accidental overdose (Accidental overdose patient did want to ER) -: minutes(s) Intent: unwilling to say How Overdose Was Discovered: family/friend present at time, called 911 Context: Intentional Overdose: legal problems Context: Accidental Overdose: wanted to get high Associated Symptoms: depression Treatments Prior to Arrival: narcan - Related Data Previous Rx's Medication Instructions Recorded lamoTRIgine [LaMICtal] 200 mg PO BID #30 tab 04/16/19 traZODone HCL 100 mg PO HS #30 tab 04/16/19 Allergies Allergy/AdvReac Type Severity Reaction Status Date / Time No Known Allergies Allergy Verified 04/10/19 21:13 Review of Systems ROS Statement: Those systems with pertinent positive or pertinent negative responses have been documented in the HPI. ROS Other: All systems not noted in ROS Statement are negative. Past Medical History Past Medical History: No Reported History Additional Past Medical History / Comment(s): kidney failure 2011 with dialysis, on life support at [facility] 07/13 after drug overdose, concusion in 2002 from fall while skateboarding, short-term memory loss History of Any Multi-Drug Resistant Organisms: None Reported Additional Past Surgical History / Comment(s): plastic surgery on lip Past Anesthesia/Blood Transfusion Reactions: No Reported Reaction Past Psychological History: Anxiety, Bipolar, Depression Smoking Status: Current every day smoker, Vaper Past Alcohol Use History: Occasional Past Drug Use History: Heroin, Marijuana, Prescription Drug Abuse - Past Family History Mother Additional Family Medical History / Comment(s): depression, multiple people with suicide attempts Father Family Medical History: Hypertension General Exam Limitations: no limitations General appearance: anxious Head exam: Present: atraumatic, normocephalic, normal inspection Eye exam: Present: normal appearance, PERRL, EOMI. Absent: scleral icterus, conjunctival injection, periorbital swelling ENT exam: Present: normal exam, mucous membranes moist Neck exam: Present: normal inspection. Absent: tenderness, meningismus, lymphadenopathy Respiratory exam: Present: normal lung sounds bilaterally. Absent: respiratory distress, wheezes, rales, rhonchi, stridor Cardiovascular Exam: Present: normal rhythm, tachycardia, normal heart sounds. Absent: systolic murmur, diastolic murmur, rubs, gallop, clicks GI/Abdominal exam: Present: soft, normal bowel sounds. Absent: distended, tenderness, guarding, rebound, rigid Extremities exam: Present: normal inspection, full ROM, normal capillary refill. Absent: tenderness, pedal edema, joint swelling, calf tenderness Back exam: Present: normal inspection Neurological exam: Present: alert, oriented X3, CN II-XII intact Psychiatric exam: Present: normal affect, normal mood Skin exam: Present: warm, dry, intact, normal color. Absent: rash Course Vital Signs 12/01/20 21:52 Pulse Rate 106 H Respiratory 18 Rate Blood Pressure 129/90 O2 Sat by Pulse 100 Oximetry - Reevaluation(s) Reevaluation #1: 12/01/20 22:15 Record is reviewed Patient has recurrent history of heroin overdose Patient is been clean for 300 days secondary to being incarcerated Reevaluation #2: 12/01/20 22:15 Patient reports that she is not homicidal or suicidal, she is awake alert Reevaluation #3: 12/01/20 22:15 Mother is at bedside Medical Decision Making - Medical Decision Making 22 female of heroin overdose requiring Narcan patient. Patient awake and alert here in the emergency department family is at bedside. Patient is not homicidal or suicidal, no other coingestions she will be discharged - EKG Data -: EKG Interpreted by Me (EKG sinus tachycardia 105 AK 142 QRS 76 QTC 462) Disposition Clinical Impression: Drug overdose, Heroin overdose Disposition: HOME SELF-CARE Instructions (If sedation given, give patient instructions): Adult Overdose (ED) Is patient prescribed a controlled substance at d/c from ED?: No Referrals: None,Stated [Primary Care Provider] - 1-2 days
[2020-12-01 22:50] VITALS: BP 116/73; PULSE 97; RESP 16
== END 2020-12-01 22:50 | disposition home or self-care (01) ==
LOC: EC 21:51
DX: T40.1X1A Poisoning by heroin, accidental (unintentional), initial encounter (principal); F41.9 Anxiety disorder, unspecified; F31.9 Bipolar disorder, unspecified; F19.11 Other psychoactive substance abuse, in remission; F17.200 Nicotine dependence, unspecified, uncomplicated; F12.90 Cannabis use, unspecified, uncomplicated; Z65.3 Problems related to other legal circumstances; Z99.2 Dependence on renal dialysis
CPT/HCPCS: 93005; 99284

== ENCOUNTER → 2023-05-31 | Outpatient (CLI) | payer OTHER ==
[2023-05-31 10:19] LABS: Basophils % (A) 0 %; Eosinophils # (A) 0.1 k/uL (0-0.7); Eosinophils % (A) 2 %; HCT 44.7 % (34.0-46.0); HGB 15.3 gm/dL (11.4-16.0); Lymphocytes # (A) 1.8 k/uL (1.0-4.8); Lymphocytes % (A) 34 %; MCH 30.3 pg (25.0-35.0); MCHC 34.1 g/dL (31.0-37.0); MCV 88.6 fL (80.0-100.0); Mean Platelet Volume 9.1; Monocytes # (A) 0.4 k/uL (0-1.0); Monocytes % (A) 7 %; Neutrophils # (A) 2.9 k/uL (1.3-7.7); Neutrophils % (A) 54 %; Platelet Count 187 k/uL (150-450); RBC 5.05 m/uL (3.80-5.40); RDW 12.8 % (11.5-15.5); WBC 5.4 k/uL (3.8-10.6)
[2023-05-31 10:44] LABS: ALT 298 U/L (4-34); AST 158 U/L (14-36); African American GFR (CKD) >90 (>60 ml/min/1.73 sqM); Albumin 4.6 g/dL (3.5-5.0); Albumin/Globulin Ratio 1.4; Alkaline Phosphatase 102 U/L (38-126); Anion Gap 6 mmol/L; Blood Urea Nitrogen 9 mg/dL (7-17); Calcium 9.5 mg/dL (8.4-10.2); Carbon Dioxide 24 mmol/L (22-30); Chloride 110 mmol/L (98-107); Globulin 3.2 g/dL; Glucose 89 mg/dL (74-99); Non-African American GFR(CKD) >90 (>60 ml/min/1.73 sqM); Potassium 4.1 mmol/L (3.5-5.1); Sodium 140 mmol/L (137-145); Total Bilirubin 0.7 mg/dL (0.2-1.3); Total Protein 7.8 g/dL (6.3-8.2)
[2023-05-31 16:21] LABS: Hepatitis C IgG Antibody Reactive (Non-Reactive)
[2023-05-31 16:35] LABS: Hepatitis A Antibody IgM Nonreactive; Hepatitis B Core IgM Nonreactive; Hepatitis B Surface Antigen Nonreactive
[2023-05-31 17:35] LABS: HIV 2 AB Non-Reactive (Non-Reactive); HIV AB P24 Non-Reactive (Non-Reactive); HIV P24 AG Non-Reactive (Non-Reactive)
== END | disposition home or self-care (01) ==
LOC: LABWHC1 09:06
PROVIDERS: ATTEND Family Medicine
DX: Z13.220 Encounter for screening for lipoid disorders (principal); Z13.1 Encounter for screening for diabetes mellitus; Z13.9 Encounter for screening, unspecified; Z79.899 Other long term (current) drug therapy
CPT/HCPCS: 36415; 80053; 80074; 80175; 83036; 83721; 84443; 85025; 87390

== ENCOUNTER → 2023-06-14 | Outpatient (CLI) | payer OTHER | END | disposition home or self-care (01) | LOC: LABWHC1 13:48 | PROVIDERS: ATTEND Family Medicine | DX: R94.5 Abnormal results of liver function studies (principal) ==

== ENCOUNTER → 2023-07-11 | Outpatient (CLI) | payer OTHER ==
[2023-07-11 16:31] LABS: INR 0.9 (<1.2); Partial Thromboplastin Time 24.8 sec (22.0-30.0); Prothrombin Time 10.4 sec (10.0-12.5)
[2023-07-12 02:28] LABS: ALT 126 U/L (8-44); AST 78 U/L (13-35); Albumin 4.4 g/dL (3.8-4.9); Albumin/Globulin Ratio 1.83 Ratio (1.60-3.17); Alkaline Phosphatase 85 U/L (41-126); BUN/Creat Ratio 7.14 Ratio (12.00-20.00); Calcium 9.2 mg/dL (8.7-10.3); Carbon Dioxide 25.8 mmol/L (21.6-31.8); Chloride 109 mmol/L (96-109); Globulin 2.4 g/dL (1.6-3.3); Glucose 89 mg/dL (70-110); Potassium 4.1 mmol/L (3.5-5.5); Sodium 145 mmol/L (135-145); Total Bilirubin 0.3 mg/dL (0.3-1.2); Total Protein 6.8 g/dL (6.2-8.2)
== END | disposition home or self-care (01) ==
LOC: LABWHC1 15:24
PROVIDERS: ATTEND Family Medicine
DX: R94.5 Abnormal results of liver function studies (principal)
CPT/HCPCS: 36415; 80053; 85610; 85730

== ENCOUNTER → 2024-08-26 | Outpatient (CLI) | payer OTHER ==
[2024-08-27 02:34] LABS: HCT 42.9 % (37.2-46.3); MCH 29.8 pg (27.0-32.0); MCHC 32.6 g/dL (32.0-37.0); MCV 91.3 FL (80.0-97.0); Mean Platelet Volume 11.6 FL (9.5-12.2); NRBC Per 100 WBC 0 X 10*3/uL (0.00-0.01); Platelet Count 173 X 10*3/uL (140-440); WBC 5.03 X 10*3/uL (4.50-10.00)
[2024-08-27 03:23] LABS: ALT 331 U/L (8-44); AST 218 U/L (13-35); Albumin 4.3 g/dL (3.8-4.9); Albumin/Globulin Ratio 1.95 Ratio (1.60-3.17); Alkaline Phosphatase 87 U/L (41-126); BUN/Creat Ratio 14.88 Ratio (12.00-20.00); Blood Urea Nitrogen 11.9 mg/dL (9.0-27.0); Calcium 9.2 mg/dL (8.7-10.3); Carbon Dioxide 26.3 mmol/L (21.6-31.8); Chloride 104 mmol/L (96-109); Globulin 2.2 g/dL (1.6-3.3); Glucose 91 mg/dL (70-110); Potassium 4.6 mmol/L (3.5-5.5); Sodium 141 mmol/L (135-145); Total Bilirubin 0.2 mg/dL (0.3-1.2); Total Protein 6.5 g/dL (6.2-8.2)
== END | disposition home or self-care (01) ==
LOC: LABWHC1 16:24
PROVIDERS: ATTEND Family Medicine
DX: Z13.1 Encounter for screening for diabetes mellitus (principal); B17.10 Acute hepatitis C without hepatic coma; Z79.899 Other long term (current) drug therapy
CPT/HCPCS: 36415; 80053; 83036; 85027; 87522